=== PATIENT | male | born 1940 | race Caucasian/White ===

== ENCOUNTER 2016-04-20 15:02 | Emergency (ER) | payer MEDICARE, OTHER ==
[~2016-04-20] VITALS: Ht 157.5 cm; Wt 106.5 kg
[~2016-04-20 15:02] MED LIST: AMLO2.5T PO; ATOR40TA PO; CIPR250 PO; CLIN150 PO; HYDR-3533 PO; LANTUS2P SC; PROT40TA PO
[2016-04-20 15:04] VITALS: BP 164/91; PULSE 83; RESP 16; TEMP 97.7; O2SAT 98
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
[2016-04-20] MEDS ORDERED: BACT800T5 PO (15:56)
== END 2016-04-20 16:12 | disposition home or self-care (01) ==
LOC: NEPB 15:02
DX: I10 Essential (primary) hypertension (principal); L03.113 Cellulitis of right upper limb
CPT/HCPCS: 99283

== ENCOUNTER 2016-10-03 10:52 | Emergency (ER) | payer OTHER ==
[~2016-10-03] VITALS: Ht 167.6 cm; Wt 106.0 kg
[~2016-10-03 10:52] MED LIST changes: +BACT800T5 PO
[2016-10-03 10:53] VITALS: BP 152/90; PULSE 98; RESP 24; TEMP 97.6; O2SAT 97
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
[2016-10-03 11:30] VITALS: RESP 22; O2SAT 98
[2016-10-03] MEDS ORDERED: SODIUM CHLORIDE 0.9% FLUSH 10 ML FLUSH IV FLUSH PRN (11:30)
[2016-10-03] MEDS ORDERED: LISI10TA3 PO (11:30)
[2016-10-03] MEDS ORDERED: LANTINJ SQ (11:30)
[2016-10-03] MEDS ORDERED: AMLO5TAB2 PO (11:30)
[2016-10-03] MEDS ORDERED: NOVOLOGSS SQ (11:30)
[2016-10-03] MEDS ORDERED: ASPI81CH CHEW (11:30)
[2016-10-03] MEDS ORDERED: TAMS0.4C4 PO (11:30)
[2016-10-03] MEDS ORDERED: PANT40TA3 PO (11:30)
[2016-10-03 11:58] LABS: BASOPHIL % 0.4 % (0.0-2.0); EOSINOPHIL # 0.5 TH/MM3 (0-0.4); EOSINOPHIL % 5.8 % (0.0-4.0); HEMATOCRIT 46.5 % (39.0-51.0); HEMO FLAGS DIFF FINAL; LYMPH % 36.6 % (9.0-44.0); MEAN CELL VOLUME 92.2 FL (80.0-100.0); MEAN CORPUSCULAR HEMOGLOBIN 31.6 PG (27.0-34.0); MEAN CORPUSCULAR HGB CONC 34.3 % (32.0-36.0); MONO % 7.9 % (0.0-8.0); NEUT % 49.3 % (16.0-70.0); PLATELET COUNT 182 TH/MM3 (150-450); RED BLOOD COUNT 5.05 MIL/MM3 (4.50-5.90); RED CELL DISTRIBUTION WIDTH 14.1 % (11.6-17.2); WHITE BLOOD COUNT 8.2 TH/MM3 (4.0-11.0)
[2016-10-03 12:18] LABS: BICARBONATE 18.7 MEQ/L (21.0-32.0); POTASSIUM 4.7 MEQ/L (3.5-5.1)
[2016-10-03 13:32] LABS: BACTERIA, URINE RARE /hpf; BLOOD, URINE MOD (NEG); COMMENT (UR) CULT NOT INDICATED; CULTURE IF INDICATED CULT NOT INDICATED; GLUCOSE,URINE NEG (NEG); HYALINE CAST, URINE 1 /lpf (RARE); KETONE, URINE NEG (NEG); MUCUS URINE FEW /lpf (OCC); NITRITE,URINE NEG (NEG); PH, URINE 5.5 (5.0-8.5); URINE COLOR YELLOW (YELLW/STRAW)
[2016-10-03 15:15] VITALS: BP 129/72; PULSE 56; RESP 18; O2SAT 94
--- NOTE | 2016-10-03 15:15 | EKG ---
Date Performed: 10/03/2016 Time Performed: 11:17:02 PTAGE: 76 years EKG: Sinus rhythm WITH FIRST DEGREE AV BLOCK WITH OCCASIONAL SUPRAVENTRICULAR PREMATURE COMPLEXES BORDERLINE LEFT AXIS DEVIATION RIGHT BUNDLE BRANCH BLOCK ABNORMAL ECG PREVIOUS TRACING : 09/30/2015 00.18 Compared to prior tracing no significant change DOCTOR: Luz Marina [employer] Interpretating Date/Time 10/03/2016 15:15:21
== END 2016-10-03 15:33 | disposition home or self-care (01) ==
LOC: NEPE 10:52
DX: E11.649 Type 2 diabetes mellitus with hypoglycemia without coma (principal); I12.9 Hypertensive chronic kidney disease with stage 1 through stage 4 chronic kidney disease, or unspecified chronic kidney disease; N18.3 Chronic kidney disease, stage 3 (moderate); Z79.4 Long term (current) use of insulin
CPT/HCPCS: 80048; 81001; 85025; 93005; 99284

== ENCOUNTER 2016-12-11 21:04 | Inpatient (IN) | payer OTHER, MEDICARE ==
[~2016-12-11] VITALS: Ht 167.6 cm; Wt 107.5 kg
[~2016-12-11 21:04] MED LIST changes: -AMLO2.5T PO; +AMLO5TAB2 PO; +ASPI-516 CHEW; -ATOR40TA PO; -BACT800T5 PO; -CIPR250 PO; -CLIN150 PO; -HYDR-3533 PO; +LANTINJ SQ; -LANTUS2P SC; +LISI10TA3 PO; +NOVOLOGSS SQ; +PANT40TA3 PO; -PROT40TA PO; +TAMS0.4C4 PO
[2016-12-11 21:16] VITALS: RESP 16; TEMP 98.1
[2016-12-11] MEDS ORDERED: ATOR20TA15 PO (21:28)
[2016-12-11 21:29] VITALS: BP 146/74; PULSE 87; RESP 18; O2SAT 95
[2016-12-11] MEDS ORDERED: ONDANSETRON HCL 4 MG/2 ML VIAL IVP ONE (21:45)
[2016-12-11] MEDS ORDERED: MORPHINE SULFATE 4 MG/ML INJ IV PUSH ONE (21:45)
[2016-12-11] MEDS ORDERED: SODIUM CHLORIDE 0.9% FLUSH 10 ML FLUSH IV FLUSH PRN (21:45)
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
[2016-12-11 22:04] VITALS: O2SAT 95
[2016-12-11 22:23] LABS: BASOPHIL % 0.3 % (0.0-2.0); EOSINOPHIL # 0.5 TH/MM3 (0-0.4); HEMATOCRIT 44.6 % (39.0-51.0); HEMOGLOBIN 15.5 GM/DL (13.0-17.0); LYMPH % 34.9 % (9.0-44.0); LYMPHOCYTE # 3.4 TH/MM3 (1.0-4.8); MEAN CELL VOLUME 91.4 FL (80.0-100.0); MEAN CORPUSCULAR HEMOGLOBIN 31.8 PG (27.0-34.0); MEAN CORPUSCULAR HGB CONC 34.8 % (32.0-36.0); MEAN PLATELET VOLUME 8.9 FL (7.0-11.0); MONO % 7.8 % (0.0-8.0); MONOCYTE # 0.8 TH/MM3 (0-0.9); PLATELET COUNT 194 TH/MM3 (150-450); RED BLOOD COUNT 4.88 MIL/MM3 (4.50-5.90); RED CELL DISTRIBUTION WIDTH 13.6 % (11.6-17.2); WHITE BLOOD COUNT 9.6 TH/MM3 (4.0-11.0)
--- NOTE | 2016-12-11 22:45 | RADRPT ---
EXAM DATE/TIME: 12/11/2016 22:13 [facility] COMPARISON: No previous studies available for comparison. INDICATIONS : Right hip pain, fall. MEDICAL HISTORY : None. SURGICAL HISTORY : None. ENCOUNTER: Initial ACUITY: 1 day PAIN SCORE: 9/10 LOCATION: Right proximal hip FINDINGS: Examination of the right hip was performed with AP Pelvis. There is a intertrochanteric fracture on t he right. The hip joint is of normal width without significant sclerosis or bony hypertrophy. The a cetabulum is grossly intact. CONCLUSION: Intertrochanteric fracture the right hip Mathieu Walker MD on December 11, 2016 at 22:42 Board Certified Radiologist. This report was verified electronically.
[2016-12-11 22:46] LABS: ALKALINE PHOSPHATASE 72 U/L (45-117); TOTAL BILIRUBIN ADULT 0.4 MG/DL (0.2-1.0); TOTAL PROTEIN 7.2 GM/DL (6.4-8.2)
[2016-12-11 22:47] LABS: ALBUMIN 3.6 GM/DL (3.4-5.0); ALT (GPT) 29 U/L (12-78); AST (GOT) 33 U/L (15-37); BICARBONATE 24.1 MEQ/L (21.0-32.0); BLOOD UREA NITROGEN 28 MG/DL (7-18); CALCIUM 8.8 MG/DL (8.5-10.1); CHLORIDE 105 MEQ/L (98-107); CREATININE 2.23 MG/DL (0.60-1.30); GLOMERULAR FILTRATION RATE 29 ML/MIN (>89); GLUCOSE,RANDOM 130 MG/DL (74-106); SODIUM (NA) 140 MEQ/L (136-145)
--- NOTE | 2016-12-11 22:48 | RADRPT ---
EXAM DATE/TIME: 12/11/2016 22:32 [facility] COMPARISON: CHEST SINGLE AP, September 30, 2015, 0:25. INDICATIONS : Shortness of breath. MEDICAL HISTORY : None. SURGICAL HISTORY : None. ENCOUNTER: Initial ACUITY: 1 day PAIN SCORE: 0/10 LOCATION: Bilateral chest FINDINGS: A single view of the chest demonstrates the lungs to be symmetrically aerated without evidence of mas s, infiltrate or effusion. The cardiomediastinal contours are unremarkable. Osseous structures are intact. CONCLUSION: Normal examination. Mathieu Walker MD on December 11, 2016 at 22:46 Board Certified Radiologist. This report was verified electronically.
--- NOTE | 2016-12-11 22:49 | RADRPT ---
EXAM DATE/TIME: 12/11/2016 22:19 [facility] COMPARISON: No previous studies available for comparison. INDICATIONS : Right femur pain, fall. MEDICAL HISTORY : Right knee fracture SURGICAL HISTORY : None. ENCOUNTER: Initial ACUITY: 1 day PAIN SCORE: 10/10 LOCATION: Right proximal femur FINDINGS: Two view examination of the right femur demonstrates a intertrochanteric fracture the right hip. Ther e is severe arthritis of the knee. There is marked bony hypertrophy of the femoral condyles. There is deformity of the proximal tibia may be related to old hardware.. CONCLUSION: Intertrochanteric fracture right hip Mathieu Walker MD on December 11, 2016 at 22:47 Board Certified Radiologist. This report was verified electronically.
[2016-12-11 22:51] LABS: PROTHROMBIN TIME - PATIENT 10.7 SEC (9.8-11.6)
[2016-12-12] VITALS (7 sets, daily range): BP systolic 132–170; BP diastolic 65–79; PULSE 66–90; RESP 17–20; TEMP 95.7–97.9; O2SAT 93–95
[2016-12-12] MEDS ORDERED: ACETAMINOPHEN 325 MG TAB PO PRN (00:15)
[2016-12-12] MEDS ORDERED: NALOXONE HCL 0.4 MG/ML AMP IV PUSH PRN ×2 (00:15→11:45)
[2016-12-12] MEDS ORDERED: ONDANSETRON HCL 4 MG/2 ML VIAL IVP PRN (00:15)
[2016-12-12] MEDS ORDERED: SODIUM CHLORIDE 0.9% FLUSH 10 ML FLUSH IV FLUSH PRN (00:15)
--- NOTE | 2016-12-12 00:26 | RADRPT ---
EXAM DATE/TIME: 12/11/2016 23:50 [facility] COMPARISON: HIP RIGHT (AP&LAT 2/3VWS) W AP PELVIS, December 11, 2016, 22:13. INDICATIONS : Evaluate right hip fracture. RADIATION DOSE: 25.06 CTDIvol (mGy) MEDICAL HISTORY : None SURGICAL HISTORY : None. ENCOUNTER: Initial ACUITY: 1 day PAIN SCALE: 10/10 LOCATION: Right hip TECHNIQUE: Volumetric scanning of the hip was performed. Using automated exposure control and adjustment of the mA and/or kV according to patient size, radiation dose was kept as low as reasonably achievable to o btain optimal diagnostic quality images. DICOM format image data is available electronically for rev iew and comparison. FINDINGS: Intertrochanteric fracture of the proximal right femur is noted. Impaction with approximately 1 cm [place] overlap medially 8mm cortical gap anteriorly. Fracture is mildly comminuted. It involves the great er trochanter and lesser trochanter. Small osteophytes of the right hip. Mild superior/anterior joint narrowing. Mild posterior joint narr owing. Hip joint alignment within normal limits. Osteoarthritic findings of sacroiliac joints with br idging osteophytes on the left. Enlarged prostate measuring 5 cm in medial to lateral dimension. CONCLUSION: Mildly comminuted mildly impacted intertrochanteric fracture of the proximal right femur. Mitch Chaney MD on December 12, 2016 at 0:17 Board Certified Radiologist. This report was verified electronically.
[2016-12-12] MEDS ORDERED: LACTATED RINGER'S 1000 ML IV PRN (01:00)
[2016-12-12] MEDS ORDERED: INSULIN HUMAN REGULAR 1,000 UNITS/10 ML VIAL SQ PRN (01:00)
[2016-12-12] MEDS ORDERED: POVIDONE IODINE 5% (ANTISEPSIS KIT) 4 APPLICATIONS EACH NARE PRN (01:00)
[2016-12-12] MEDS ORDERED: CHLORHEXIDINE GLUCONATE 2 % 1 PACK (2 CLOTHS) TOPICAL PRN (01:00)
[2016-12-12] MEDS ORDERED: SODIUM CHLORID 0.9% 500 ML IV PRN (01:00)
[2016-12-12] MEDS: MORPHINE SULFATE 2 MG/ML INJ IV PUSH PRN ×2 (01:20→09:17)
[2016-12-12 07:24] LABS: AUTOMATED NEUTROPHIL # 11.8 TH/MM3 (1.8-7.7); BASOPHIL % 0.2 % (0.0-2.0); EOSINOPHIL % 0.1 % (0.0-4.0); HEMATOCRIT 43.7 % (39.0-51.0); HEMOGLOBIN 14.9 GM/DL (13.0-17.0); LYMPH % 14.9 % (9.0-44.0); LYMPHOCYTE # 2.2 TH/MM3 (1.0-4.8); MEAN CELL VOLUME 93.2 FL (80.0-100.0); MEAN CORPUSCULAR HEMOGLOBIN 31.6 PG (27.0-34.0); MEAN PLATELET VOLUME 9.1 FL (7.0-11.0); MONO % 6.7 % (0.0-8.0); NEUT % 78.1 % (16.0-70.0); PLATELET COUNT 183 TH/MM3 (150-450); RED CELL DISTRIBUTION WIDTH 14.2 % (11.6-17.2); WHITE BLOOD COUNT 15.1 TH/MM3 (4.0-11.0)
[2016-12-12 08:02] LABS: BICARBONATE 20.4 MEQ/L (21.0-32.0); CALCIUM 8.8 MG/DL (8.5-10.1); CREATININE 2.33 MG/DL (0.60-1.30)
[2016-12-12] MEDS ORDERED: SODIUM CHLORIDE 0.9% FLUSH 10 ML FLUSH IV FLUSH SCH (09:00)
[2016-12-12] MEDS ORDERED: VANCOMYCIN HCL 1000 MG VIAL ONE (10:00)
[2016-12-12] MEDS ORDERED: ceFAZolin INJ 1,000 MG VIAL ONE (10:00)
[2016-12-12] MEDS ORDERED: GENTAMICIN SULFATE 80 MG/2 ML VIAL ONE (10:01)
[2016-12-12] MEDS ORDERED: TRANEXAMIC ACID INJ 1,000 MG/10 ML AMP ONE (10:18)
[2016-12-12] MEDS ORDERED: SODIUM CHLORIDE 0.9% INJ 100 ML ONE (10:21)
[2016-12-12] MEDS ORDERED: ACETAMINOPHEN 1000 MG/100 ML 100 ML IV ONE (10:54)
--- NOTE | 2016-12-12 11:41 | PD.OP ---
cc: Tim Tabares MD Operative Report Right hip intertrochanteric fracture Postoperative Diagnosis: Same Procedure: Right hip treatment of intertrochanteric fracture with intramedullary nail Anesthesia: Gen. Surgeon: Tim Tabares Director Public Policy(s): VJ Marquis The surgical procedure was assisted by my Advanced Registered Nurse Practitioner. My SPORTS EQUIPMENT REPAIRER presence was necessary throughout this case for the manipulation and positioning of the surgical extremity. My SPORTS EQUIPMENT REPAIRER was assisting me throughout the duration of this procedure. The skill set of an Advance Registered Nurse Practitioner was medically necessary to complete this procedure. During the surgical case, the mechanical technician was working at the back table and the Advance Registered Nurse Practitioner was directly assisting me. Operation and Findings: Estimated blood loss: 100 cc Implants: Synthes short trochanteric nail, size: 11 x 130 The patient received intravenous vancomycin and Ancef. After the appropriate anesthesia was administered, and the patient was transferred to the fracture table. The fracture was anatomically reduced under fluoroscopic imaging. The hip was prepped and draped in usual sterile fashion. We made incision just proximal to the tip of the greater trochanter. We dissected down through the deep fascia. We used a threaded guidewire at the tip of the greater trochanter which was placed down to the metaphyseal region on both the AP and lateral views. We reamed proximally. Using fluoroscopic analysis we templated the appropriate size for the short nail. This nail was then placed into position under fluoroscopic guidance. We made incision laterally based on the position of the associated jig. We then placed a threaded guidewire into the center, center of the femoral head. The appropriate length for the helical blade was measured. We drilled laterally and then step reamed the femoral neck and femoral head region. The helical blade was placed into position. We then tightened the proximal set screw, which was followed by releasing one turn off of the screw to allow for compression. Traction was released from the leg and then manual compression was performed. The nail was secured distally with a single screw off of the jig using fluoroscopic guidance. We took final fluoroscopic imaging which revealed that the fracture was in very good position. The hardware was in good position as well. The wounds were thoroughly irrigated and then closed with a 0 Vicryl followed by 2-0 Vicryl and kadie. The postoperative plan is to start full weightbearing. Additionally, we will initiate postoperative antibiotics for 24 hours along with DVT prophylaxis consisting of early mobilization, SCDs, compression stockings, and Lovenox for 3 weeks (I discussed the dosage of the Lovenox with the pharmacist given his obesity and also the chronic renal insufficiency. The pharmacist felt that 40 mg subcutaneous daily would be appropriate in this patient.) Tim Tabares MD Dec 12, 2016 11:41
--- NOTE | 2016-12-12 11:41 | PD.OP ---
cc: Tim Tabares MD Operative Report Right hip intertrochanteric fracture Postoperative Diagnosis: Same Procedure: Right hip treatment of intertrochanteric fracture with intramedullary nail Anesthesia: Gen. Surgeon: Tim Tabares Personal Clothing Laundry Aide(s): VJ Marquis The surgical procedure was assisted by my Advanced Registered Nurse Practitioner. My C PYTHON DEVELOPER presence was necessary throughout this case for the manipulation and positioning of the surgical extremity. My C PYTHON DEVELOPER was assisting me throughout the duration of this procedure. The skill set of an Advance Registered Nurse Practitioner was medically necessary to complete this procedure. During the surgical case, the surgical nurse practitioner was working at the back table and the Advance Registered Nurse Practitioner was directly assisting me. Operation and Findings: Estimated blood loss: 100 cc Implants: Synthes short trochanteric nail, size: 11 x 130 The patient received intravenous vancomycin and Ancef. After the appropriate anesthesia was administered, and the patient was transferred to the fracture table. The fracture was anatomically reduced under fluoroscopic imaging. The hip was prepped and draped in usual sterile fashion. We made incision just proximal to the tip of the greater trochanter. We dissected down through the deep fascia. We used a threaded guidewire at the tip of the greater trochanter which was placed down to the metaphyseal region on both the AP and lateral views. We reamed proximally. Using fluoroscopic analysis we templated the appropriate size for the short nail. This nail was then placed into position under fluoroscopic guidance. We made incision laterally based on the position of the associated jig. We then placed a threaded guidewire into the center, center of the femoral head. The appropriate length for the helical blade was measured. We drilled laterally and then step reamed the femoral neck and femoral head region. The helical blade was placed into position. We then tightened the proximal set screw, which was followed by releasing one turn off of the screw to allow for compression. Traction was released from the leg and then manual compression was performed. The nail was secured distally with a single screw off of the jig using fluoroscopic guidance. We took final fluoroscopic imaging which revealed that the fracture was in very good position. The hardware was in good position as well. The wounds were thoroughly irrigated and then closed with a 0 Vicryl followed by 2-0 Vicryl and kadie. The postoperative plan is to start full weightbearing. Additionally, we will initiate postoperative antibiotics for 24 hours along with DVT prophylaxis consisting of early mobilization, SCDs, compression stockings, and Lovenox for 3 weeks (I discussed the dosage of the Lovenox with the pharmacist given his obesity and also the chronic renal insufficiency. The pharmacist felt that 40 mg subcutaneous daily would be appropriate in this patient.) Tim Tabares MD Dec 12, 2016 11:41
--- NOTE | 2016-12-12 11:41 | PD.OP ---
cc: Tim Tabares MD Operative Report Right hip intertrochanteric fracture Postoperative Diagnosis: Same Procedure: Right hip treatment of intertrochanteric fracture with intramedullary nail Anesthesia: Gen. Surgeon: Tim Tabares Beverage Manager(s): VJ Marquis The surgical procedure was assisted by my Advanced Registered Nurse Practitioner. My BROADCAST TRAFFIC COORDINATOR presence was necessary throughout this case for the manipulation and positioning of the surgical extremity. My BROADCAST TRAFFIC COORDINATOR was assisting me throughout the duration of this procedure. The skill set of an Advance Registered Nurse Practitioner was medically necessary to complete this procedure. During the surgical case, the surgical assistant certified was working at the back table and the Advance Registered Nurse Practitioner was directly assisting me. Operation and Findings: Estimated blood loss: 100 cc Implants: Synthes short trochanteric nail, size: 11 x 130 The patient received intravenous vancomycin and Ancef. After the appropriate anesthesia was administered, and the patient was transferred to the fracture table. The fracture was anatomically reduced under fluoroscopic imaging. The hip was prepped and draped in usual sterile fashion. We made incision just proximal to the tip of the greater trochanter. We dissected down through the deep fascia. We used a threaded guidewire at the tip of the greater trochanter which was placed down to the metaphyseal region on both the AP and lateral views. We reamed proximally. Using fluoroscopic analysis we templated the appropriate size for the short nail. This nail was then placed into position under fluoroscopic guidance. We made incision laterally based on the position of the associated jig. We then placed a threaded guidewire into the center, center of the femoral head. The appropriate length for the helical blade was measured. We drilled laterally and then step reamed the femoral neck and femoral head region. The helical blade was placed into position. We then tightened the proximal set screw, which was followed by releasing one turn off of the screw to allow for compression. Traction was released from the leg and then manual compression was performed. The nail was secured distally with a single screw off of the jig using fluoroscopic guidance. We took final fluoroscopic imaging which revealed that the fracture was in very good position. The hardware was in good position as well. The wounds were thoroughly irrigated and then closed with a 0 Vicryl followed by 2-0 Vicryl and kadie. The postoperative plan is to start full weightbearing. Additionally, we will initiate postoperative antibiotics for 24 hours along with DVT prophylaxis consisting of early mobilization, SCDs, compression stockings, and Lovenox for 3 weeks (I discussed the dosage of the Lovenox with the pharmacist given his obesity and also the chronic renal insufficiency. The pharmacist felt that 40 mg subcutaneous daily would be appropriate in this patient.) Tim Tabares MD Dec 12, 2016 11:41
[2016-12-12] MEDS ORDERED: ENOX40IN SQ (11:42)
[2016-12-12] MEDS ORDERED: NORC5TAB PO (11:42)
[2016-12-12] MEDS ORDERED: SODIUM CHLORIDE 0.9% FLUSH 5 ML FLUSH IVF PRN (11:45)
[2016-12-12] MEDS ORDERED: BISACODYL 10 MG SUPP RECTAL PRN (11:45)
[2016-12-12] MEDS ORDERED: Post-op Orders (for Pharmacy) MISC XX ONE (11:45)
[2016-12-12] MEDS ORDERED: ZOLPIDEM TARTRATE 5 MG TAB PO PRN (11:45)
[2016-12-12] MEDS ORDERED: MORPHINE SULFATE 4 MG/ML INJ IV PUSH PRN (11:45)
[2016-12-12] MEDS ORDERED: diphenhydrAMINE HCL 50 MG/ML VIAL IV PUSH PRN (11:45)
[2016-12-12] MEDS ORDERED: ALUMINUM/MAGNESIUM/SIMETH 30 ML CUP PO PRN (11:45)
--- NOTE | 2016-12-12 11:52 | RADRPT ---
EXAM DATE/TIME: 12/12/2016 11:00 [facility] COMPARISON: No previous studies available for comparison. INDICATIONS : Open reduction internal fixation of right hip fracture MEDICAL HISTORY : None. SURGICAL HISTORY : None. ENCOUNTER: Initial ACUITY: 1 day PAIN SCORE: Non-responsive. LOCATION: Right hip FINDINGS: Fluoroscopic images are of the right hip are submitted. There has been interval intramedullary giuliano an d compression screw fixation of the right femoral intertrochanteric fracture. Hardware appears well-p ositioned. There is anatomic alignment. No new acute bony fractures are noted. CONCLUSION: 1. Status post right hip ORIF, as above. London Chin MD on December 12, 2016 at 11:48 Board Certified Radiologist. This report was verified electronically.
[2016-12-12] MEDS ORDERED: *MEPERIDINE 25 MG INJ VIAL PERIprocedural Use ONLY ONE (12:05)
[2016-12-12] MEDS ORDERED: *LABETALOL HCL 100 MG/20 ML VIAL PERIprocedural Use ONLY ONE (12:09)
--- NOTE | 2016-12-12 12:14 | MB ---
cc: ZAYRA BASS M.D. DATE OF CONSULTATION 12/12/2016 REASON FOR CONSULTATION Right hip fracture. HISTORY The patient is a 76-year-old man. This patient had a mechanical fall on a park bench yesterday. The patient tripped, injured the right hip. He was unable to ambulate. The patient was brought to [facility]. X-rays were taken. He had fracture of the right hip. We discussed diagnosis and reviewed the x-rays with the emergency room physician. We did recommend getting a CT scan to further characterize the nature of the fracture. This was completed. The patient has had previous history of problems with the knee in the past where he has had surgery and then hardware removed and he has had a history of infection in this area. The patient states that says he has significant amount of pain around the hip and thigh region. There is no new numbness or tingling radiating down the leg. PAST MEDICAL HISTORY Positive for having one kidney and he has had chronic kidney disease now for the last 4 or 5 years. Other medical conditions include hypertension, high cholesterol, diabetes, heart rhythm problems. PAST SURGICAL HISTORY Appendectomy, kidneys stones, tonsillectomy, surgery about the right knee. SOCIAL HISTORY The patient currently drink alcohol. Does not smoke. ALLERGIES NO KNOWN DRUG ALLERGIES. MEDICATIONS See the chart note that he does take insulin, several preparations of this. REVIEW OF SYSTEMS The 12-point review of systems is negative except for what is stated in the history of present illness. PHYSICAL EXAMINATION VITAL SIGNS: Temperature is 97.9, pulse is 75, respirations 18, blood pressure 135/77. GENERAL: Patient is awake, alert and oriented x3. Normal affect insight and judgment. Mild distress due to pain. He is obese. HEENT: Atraumatic. Extraocular muscles are intact. Oropharynx is moist. NECK: Neck is supple, nontender. HEART: Regular rate and rhythm. LUNGS: Clear to auscultation bilaterally. ABDOMEN: Soft, nontender, nondistended with obesity. BACK: Shows no CVA tenderness. EXTREMITIES: Bilateral upper extremities, the shoulders, elbows and wrist have good active range of motion. The right hip has swelling of a mild to moderate degree. I did not appreciate a wound anteriorly about the thigh. The hip ___ externally rotated. He moves the toes actively on the right foot. He has brisk capillary refill about the toes. The left knee and ankle have no tenderness or swelling. IMAGING STUDIES Images reviewed including the reports of the right femur, AP pelvis and a CT of the right hip shows the patient has comminuted mildly displaced intertrochanteric fracture. This revealed the postsurgical changes about the knee with what looks like previous hardware removal possibly from a high tibial osteotomy with severe osteoarthritis of the knee. LABORATORY DATA Laboratory shows sodium 140, creatinine 2.23 which is stable. BUN is 28, glucose went from 307 to 130. Coagulations 1.0, hematocrit 43.7, platelets 183. IMPRESSION 1. Right hip intertrochanteric fracture. 2. Insulin-dependent diabetic. 3. History of right knee infection in the past with severe osteoarthritis. 4. Chronic renal failure with a single kidney. DECISION-MAKING I discussed the diagnosis in detail with the patient. We discussed operative and nonoperative management. I do feel that with nonoperative management there is significant risk for displacement of this fracture. This type of fracture pattern potentially can be unstable and if this does not heal then this can seriously affect his ability to ambulate which can lead to serious impairment of the lower extremity which can lead to blood clots, bed sores, pneumonia, DVT, pulmonary embolus and . Based on this fracture pattern I have recommended surgical management. There are risks, however, especially given the fact that he has the chronic kidney disease is at risk for worsening in addition to the use of perioperative antibiotics can affect the kidneys. Additionally, the patient will require DVT prophylaxis chemically which can be affected by the kidney disease as well. We talked about postoperative rehabilitation in detail. The patient understands the risks of surgery include but not limited to injury to nerves, blood vessels, bleeding, infection failure of hardware, need for reoperation, continued pain, loss of range of motion of the hip, weakness, DVT, pulmonary embolus, pneumonia and . The patient wishes to move forward with surgical management. MD GLADYS Yung/SHAGGY /8:21 AM /11:58 AM NICOLÁS
[2016-12-12] MEDS ORDERED: *morphine SULFATE 8 MG/ML PERIprocedure ONLY ONE (12:24)
[2016-12-12] MEDS ORDERED: TRANEXAMIC ACID IV SCH ×2 (13:00→15:00)
[2016-12-12] MEDS ORDERED: DO NOT ADM ANY ANTICOAGULANT DRUGS PRN (13:00)
[2016-12-12] MEDS ORDERED: SODIUM CHLORIDE 0.9% IV SCH ×2 (13:00→15:00)
--- NOTE | 2016-12-12 13:28 | HHI.HP ---
HPI Service [facility] Analilia Pascual MD Admission Diagnosis closed right hip fracture Diagnoses: Chief Complaint: Status post Fall Travel History International Travel<30 Days: No Contact w/Intl Traveler <30 Da: No Traveled to Known Affected Are: No History of Present Illness This is a pleasant 76 y/o male with History of right knee arthroplasty, brought in by EMS due to status post fall with secondary right hip pain he had a mechanical trip and fall on a park bench, the patient has CAD, Hyperlipidemia, DM II, Left shoulder OA, BPH, CKD IV, he was found with Right hip Intertrochanteric Fracture status post intramedullary nail by Doctor Tim Tabares. complaint of pain on his Right hip. Review of Systems Constitutional: DENIES: Fever, Chills, Change in appetite Endocrine: DENIES: Heat/cold intolerance Eyes: DENIES: Blurred vision, Eye pain Musculoskeletal: COMPLAINS OF: Joint pain Except as stated in HPI: all other systems reviewed are Neg Past Family Social History Past Medical History CAD Hyperlipidemia DM II Left shoulder OA and torn rotator cuff BPH CKD IV Past Surgical History Appendectomy 2004 Tonsillectomy Hernia repair Reported Medications Reported Meds & Active Scripts Active Enoxaparin Inj (Enoxaparin Sodium) 40 Mg/0.4 Ml Syr 40 Mg SQ DAILY [place] (Hydrocodone-Acetaminophen) 5-325 mg Tab 1-2 Tab PO Q4H PRN Reported Atorvastatin (Atorvastatin Calcium) 20 Mg Tab 20 Mg PO HS Lantus Solostar Pen Inj (Insulin Glargine) 300 Unit/3 Ml Pen 35 Units SQ BID Pantoprazole (Pantoprazole Sodium) 40 Mg Tab 40 Mg PO DAILY Lisinopril 10 Mg Tab 10 Mg PO DAILY Tamsulosin (Tamsulosin HCl) 0.4 Mg Cap 0.4 Mg PO HS Novolog Inj (Insulin Aspart) 100 Unit/Ml Inj 12 Units SQ TID Allergies: Coded Allergies: No Known Allergies (Verified Allergy, Unknown, 12/12/16) Active Ordered Medications Current Medications Medications (Trade) Dose Ordered Sig/Porsha Route Start Time Stop Time Status Last Admin (Tylenol) 650 mg Q4H PRN PO 12/12/16 00:15 Lactated Ringer's 1,000 ml @ 30 mls/hr Q24H PRN IV 12/12/16 01:00 12/15/16 00:59 12/12/16 09:19 Sodium Chloride 500 ml @ 30 mls/hr [id number] PRN IV 12/12/16 01:00 12/15/16 00:59 (Betadine 5% Antisepsis Kit) 1 applic PUBLIC WELFARE WORKER PRN EACH NARE 12/12/16 01:00 12/15/16 00:59 (Chlorhexidine 2% Cloth) 3 pack PUBLIC WELFARE WORKER PRN TOPICAL 12/12/16 01:00 12/15/16 00:59 (NovoLIN R INJ) See Protocol Table ... PUBLIC WELFARE WORKER PRN SQ 12/12/16 01:00 12/15/16 00:59 Sodium Chloride 1,000 ml @ 100 mls/hr Q10H IV 12/12/16 11:36 (NS Flush) 2 ml UNSCH PRN IVF 12/12/16 11:45 (NS Flush) 2 ml BID IVF 12/12/16 21:00 Cefazolin Sodium 1000 mg/Sodium Chloride 100 ml @ 200 mls/hr Q6H IV 12/12/16 16:00 12/13/16 04:29 (Lovenox Inj) 40 mg Q24H SQ 12/13/16 11:00 12/22/16 11:01 ([place] 5-325 Mg) 1 tab Q4H PRN PO 12/12/16 11:45 ([place] 5-325 Mg) 2 tab Q4H PRN PO 12/12/16 11:45 (Theragran M Tab) 1 tab BID PO 12/13/16 21:00 02/11/17 20:59 (Zofran Inj) 4 mg Q6H PRN IVP 12/12/16 11:45 (Colace) 100 mg BID PO 12/13/16 21:00 (Mag-Al Plus Susp Liq) 30 ml Q6H PRN PO 12/12/16 11:45 (Ambien) 5 mg HS PRN PO 12/12/16 11:45 (Dulcolax Supp) 10 mg DAILY PRN RECTAL 12/12/16 11:45 (Milk Of Magnesia Liq) 30 ml DAILY PRN PO 12/12/16 11:45 (Narcan Inj) 0.4 mg UNSCH PRN IV PUSH 12/12/16 11:45 (Benadryl Inj) 25 mg Q6H PRN IV PUSH 12/12/16 11:45 (Morphine Inj) 2 mg Q3H PRN IV PUSH 12/12/16 11:45 Tranexamic Acid 1010 mg/Sodium Chloride 110.1 ml @ 200 mls/hr UNSCH IV 12/12/16 13:00 12/12/16 19:00 12/12/16 13:02 Miscellaneous Information ALL NURSING DEPARTME... UNSCH PRN .XX 12/12/16 13:00 12/13/16 12:59 Family History Mother with breast Cancer Social History Lives alone, denies any toxic habits Physical Exam Vital Signs Vital Signs Date Time Temp Pulse Resp B/P (MAP) Pulse Ox O2 Delivery O2 Flow Rate FiO2 12/12/16 13:00 69 18 128/67 (87) 96 Nasal Cannula 3 12/12/16 12:45 68 18 124/65 (84) 96 Nasal Cannula 3 12/12/16 12:30 66 18 131/61 (84) 96 Nasal Cannula 3 12/12/16 12:15 73 18 142/68 (92) 99 Nasal Cannula 3 12/12/16 12:10 98 18 205/88 (127) 99 Nasal Cannula 3 12/12/16 12:04 98.4 100 18 193/83 (119) 100 Nasal Cannula 3 12/12/16 08:00 96.0 66 17 137/65 (89) 94 12/12/16 04:15 97.9 75 18 135/77 (96) 95 12/12/16 01:56 74 12/12/16 01:00 97.6 72 18 170/78 (108) 95 12/11/16 22:04 95 Room Air 12/11/16 21:29 87 18 146/74 (98) 95 Room Air 12/11/16 21:25 18 95 Room Air 12/11/16 21:16 98.1 16 Physical Exam GENERAL: Obese patient, no acute distress. SKIN: Focused skin assessment warm/dry. No lacerations, abrasions, or ecchymosis. HEAD: Atraumatic. Normocephalic. EYES: Pupils equal and round. No scleral icterus. No injection or drainage. ENT: Mucous membranes pink and moist. NECK: Trachea midline. No JVD. CARDIOVASCULAR: Regular rate and rhythm. Bilateral dorsalis pedis pulses are brisk and equal. RESPIRATORY: No accessory muscle use. Clear to auscultation. Breath sounds equal bilaterally. GASTROINTESTINAL: Abdomen soft, non-tender, nondistended. MUSCULOSKELETAL: Right hip with clean surgical wound. NEUROLOGICAL: Awake and alert. No obvious cranial nerve deficits. Motor grossly within normal limits. Normal speech. PSYCHIATRIC: Appropriate mood and affect; insight and judgment normal. Laboratory Laboratory Tests Test 12/11/16 22:00 12/12/16 05:46 White Blood Count 9.6 15.1 Red Blood Count 4.88 4.70 Hemoglobin 15.5 14.9 Hematocrit 44.6 43.7 Mean Corpuscular Volume 91.4 93.2 Mean Corpuscular Hemoglobin 31.8 31.6 Mean Corpuscular Hemoglobin Concent 34.8 34.0 Red Cell Distribution Width 13.6 14.2 Platelet Count 194 183 Mean Platelet Volume 8.9 9.1 Neutrophils (%) (Auto) 52.0 78.1 Lymphocytes (%) (Auto) 34.9 14.9 Monocytes (%) (Auto) 7.8 6.7 Eosinophils (%) (Auto) 5.0 0.1 Basophils (%) (Auto) 0.3 0.2 Neutrophils # (Auto) 5.0 11.8 Lymphocytes # (Auto) 3.4 2.2 Monocytes # (Auto) 0.8 1.0 Eosinophils # (Auto) 0.5 0.0 Basophils # (Auto) 0.0 0.0 CBC Comment DIFF FINAL DIFF FINAL Differential Comment Prothrombin Time 10.7 Prothromb Time International Ratio 1.0 Activated Partial Thromboplast Time 25.2 Blood Urea Nitrogen 28 28 Creatinine 2.23 2.33 Random Glucose 130 307 Total Protein 7.2 Albumin 3.6 Calcium Level 8.8 8.8 Alkaline Phosphatase 72 Aspartate Amino Transf (AST/SGOT) 33 Alanine Aminotransferase (ALT/SGPT) 29 Total Bilirubin 0.4 Sodium Level 140 134 Potassium Level 4.2 5.4 Chloride Level 105 105 Carbon Dioxide Level 24.1 20.4 Anion Gap 11 9 Estimat Glomerular Filtration Rate 29 27 Result Diagram: 12/12/1646 12/12/1646 Imaging Last Impressions Hip X-Ray 12/12/16 Signed Impressions: Service Date/Time: Monday, December 12, 2016 11:00 - CONCLUSION: 1. Status post right hip ORIF, as above. London Chin MD Lower Extremity CT 12/11/16 Signed Impressions: Service Date/Time: Sunday, December 11, 2016 23:50 - CONCLUSION: Mildly comminuted mildly impacted intertrochanteric fracture of the proximal right femur. Mitch Chaney MD Hip and Pelvis X-Ray 12/11/16 Signed Impressions: Service Date/Time: Sunday, December 11, 2016 22:13 - CONCLUSION: Intertrochanteric fracture the right hip Mathieu Walker MD Femur X-Ray 12/11/16 Signed Impressions: Service Date/Time: Sunday, December 11, 2016 22:19 - CONCLUSION: Intertrochanteric fracture right hip Mathieu Walker MD Chest X-Ray 12/11/16 Signed Impressions: Service Date/Time: Sunday, December 11, 2016 22:32 - CONCLUSION: Normal examination. Mathieu Walker MD [place] VTE Risk Assessment Caprini VTE Risk Assessment: Mod/High Risk (score >= 2) Caprini Risk Assessment Model Point Value = 1 Point Value = 2 Point Value = 3 Point Value = 5 Age 41-60 Minor surgery BMI > 25 kg/m2 Swollen legs Varicose veins or History of unexplained or recurrent spontaneous Oral contraceptives or hormone replacement Sepsis (< 1 month) Serious lung disease, including pneumonia (< 1 month) Abnormal pulmonary function Acute myocardial infarction Congestive heart failure (< 1 month) History of inflammatory bowel disease Medical patient at bed rest Age 61-74 Arthroscopic surgery Major open surgery (> 45 min) Laparoscopic surgery (> 45 min) Malignancy Confined to bed (> 72 hours) Immobilizing plaster cast Central venous access Age >= 75 History of VTE Family history of VTE Factor V Leiden Prothrombin [id number] Lupus anticoagulant Anticardiolipin antibodies Elevated serum homocysteine Heparin-induced thrombocytopenia Other congenital or acquired thrombophilia Stroke (< 1 month) Elective arthroplasty Hip, pelvis, or leg fracture Acute spinal cord injury (< 1 month) Prophylaxis Regimen Total Risk Factor Score Risk Level Prophylaxis Regimen 0-1 Low Early ambulation 2 Moderate Order ONE of the following: *Sequential Compression Device (SCD) *Heparin 5000 units SQ BID 3-4 Higher Order ONE of the following medications: *Heparin 5000 units SQ TID *Enoxaparin/Lovenox 40 mg SQ daily (WT < 150 kg, CrCl > 30 mL/min) *Enoxaparin/Lovenox 30 mg SQ daily (WT < 150 kg, CrCl > 10-29 mL/min) *Enoxaparin/Lovenox 30 mg SQ BID (WT < 150 kg, CrCl > 30 mL/min) AND/OR *Sequential Compression Device (SCD) 5 or more Highest Order ONE of the following medications: *Heparin 5000 units SQ TID (Preferred with Epidurals) *Enoxaparin/Lovenox 40 mg SQ daily (WT < 150 kg, CrCl > 30 mL/min) *Enoxaparin/Lovenox 30 mg SQ daily (WT < 150 kg, CrCl > 10-29 mL/min) *Enoxaparin/Lovenox 30 mg SQ BID (WT < 150 kg, CrCl > 30 mL/min) AND *Sequential Compression Device (SCD) Assessment and Plan Assessment and Plan 1. Status post fall with secondary Right hip Intertrochanteric Fracture status post intramedullary nail by Doctor Tim Tabares continue pain medicine, consult Diesel Tractor Operator and PT. 2. CAD stable continue Home medicines. 3. Hyperlipidemia continue statins 4. BPH continue Flomax 5. DM II stable continue ADA diet and heart healthy diet, sliding stable, Long lasting insulin, and scheduled insulin with every meal 6. CKD IV stable 7. Obesity strongly recommended diet and exercise as outpatient DVT prophylaxis with Lovenox. Code Status Full Code. Discussed Condition With Patient. Physician Certification 2 Midnight Certification Type: Admission for Inpatient Services Order for Inpatient Services The services are ordered in accordance with Medicare regulations or non- Medicare payer requirements, as applicable. In the case of services not specified as inpatient-only, they are appropriately provided as inpatient services in accordance with the 2-midnight benchmark. Estimated LOS (days): 3 days is the estimated time the patient will need to remain in the hospital, assuming treatment plan goals are met and no additional complications. Post-Hospital Plan: Not yet determined Roberto Carlos Kaiser MD Dec 12, 2016 1:28 pm
[2016-12-12] MEDS: PANTOPRAZOLE SOD 40 MG DELAYED RELEASE TAB PO SCH (17:04)
[2016-12-12] MEDS: ACETAMINOPHEN/HYDROcodone 325 MG/5 MG TAB PO PRN (18:42)
[2016-12-12] MEDS: SODIUM CHLOR 0.9% 1000 ML INJ 1,000 ML IV SCH ×2 (18:45→22:55)
[2016-12-12] MEDS: ATORVASTATIN 20 MG TAB PO SCH (20:22)
[2016-12-12] MEDS: SODIUM CHLORIDE 0.9% FLUSH 5 ML FLUSH IVF SCH (20:30)
[2016-12-12] MEDS: TAMSULOSIN HCL 0.4 MG CAP PO SCH (20:30)
[2016-12-12] MEDS: ONDANSETRON HCL 4 MG/2 ML VIAL IVP PRN (20:31)
[2016-12-12] MEDS: INSULIN DETEMIR 100 UNITS/ML VIAL SQ SCH (20:37)
[2016-12-12] MEDS: INSULIN ASPART SUPPLEMENTAL SCALE SQ SCH (20:37)
[2016-12-13] VITALS (7 sets, daily range): BP systolic 130–150; BP diastolic 62–71; PULSE 70–89; RESP 15–20; TEMP 96.2–98.6; O2SAT 90–94
[2016-12-13] MEDS: ONDANSETRON HCL 4 MG/2 ML VIAL IVP PRN (05:24)
[2016-12-13 07:07] LABS: HEMATOCRIT 41.5 % (39.0-51.0); HEMOGLOBIN 14.1 GM/DL (13.0-17.0); MEAN CELL VOLUME 93.1 FL (80.0-100.0); MEAN CORPUSCULAR HEMOGLOBIN 31.7 PG (27.0-34.0); MEAN PLATELET VOLUME 9.3 FL (7.0-11.0); PLATELET COUNT 147 TH/MM3 (150-450); RED BLOOD COUNT 4.45 MIL/MM3 (4.50-5.90); RED CELL DISTRIBUTION WIDTH 14.2 % (11.6-17.2); WHITE BLOOD COUNT 13.1 TH/MM3 (4.0-11.0)
[2016-12-13 07:24] LABS: BICARBONATE 23.3 MEQ/L (21.0-32.0); CALCIUM 8.2 MG/DL (8.5-10.1); CREATININE 2.05 MG/DL (0.60-1.30)
[2016-12-13] MEDS: PANTOPRAZOLE SOD 40 MG DELAYED RELEASE TAB PO SCH (08:47)
[2016-12-13] MEDS: INSULIN DETEMIR 100 UNITS/ML VIAL SQ SCH ×2 (08:47→20:16)
[2016-12-13] MEDS: LISINOPRIL 10 MG TAB PO SCH (08:47)
[2016-12-13] MEDS: INSULIN ASPART SUPPLEMENTAL SCALE SQ SCH ×4 (08:48→20:16)
[2016-12-13] MEDS: INSULIN HUMAN REGULAR 1,000 UNITS/10 ML VIAL SQ SCH ×3 (08:51→18:20)
[2016-12-13] MEDS: SODIUM CHLOR 0.9% 1000 ML INJ 1,000 ML IV SCH (08:51)
[2016-12-13] MEDS: SODIUM CHLORIDE 0.9% FLUSH 5 ML FLUSH IVF SCH ×2 (08:53→20:17)
--- NOTE | 2016-12-13 08:59 | EKG ---
Date Performed: 12/12/2016 Time Performed: 06:37:50 PTAGE: 76 years EKG: Sinus rhythm with borderline 1st degree A-V block. Right bundle branch block Lateral T wave changes are nonspecif ic Compared to prior tracing no significant change Abnormal ECG PREVIOUS TRACING : 10/03/2016 11.17 DOCTOR: Jaime Corral Interpretating Date/Time 12/13/2016 08:59:07
[2016-12-13] MEDS: ACETAMINOPHEN/HYDROcodone 325 MG/5 MG TAB PO PRN ×3 (11:38→20:16)
[2016-12-13] MEDS: ENOXAPARIN SODIUM 30 MG/0.3 ML SYRINGE SQ SCH (11:40)
--- NOTE | 2016-12-13 14:23 | HHI.PR ---
Subjective Remarks This is a pleasant 76 y/o male with History of right knee arthroplasty, brought in by EMS due to status post fall with secondary right hip pain he had a mechanical trip and fall on a park bench, the patient has CAD, Hyperlipidemia, DM II, Left shoulder OA, BPH, CKD IV, he was found with Right hip Intertrochanteric Fracture status post intramedullary nail by Doctor Tim Tabares, no complaint today, seen and discussed with nurse Miss Majano, no nausea, vomit or diarrhea. Objective Vital Signs Date Time Temp Pulse Resp B/P (MAP) Pulse Ox O2 Delivery O2 Flow Rate FiO2 12/13/16 12:00 98.0 89 15 135/71 (92) 93 12/13/16 08:00 97.5 84 15 141/64 (89) 92 12/13/16 04:00 97.0 86 20 150/68 (95) 92 12/13/16 00:00 98.6 83 20 137/69 (91) 92 12/12/16 21:10 Nasal Cannula 2.00 12/12/16 20:00 97.5 90 20 141/79 (99) 95 12/12/16 16:00 97.9 78 17 142/67 (92) 93 I/O 12/12/16 12/12/16 12/12/16 12/13/16 12/13/16 12/13/16 07:00 15:00 23:00 07:00 15:00 23:00 Intake Total 0 ml 610.1 ml 320 ml Output Total 325 ml 75 ml 600 ml Balance -325 ml 535.1 ml -280 ml Intake Oral 0 ml 120 ml IV Total 110.1 ml 200 ml Other 500 ml Output Urine Total 325 ml 600 ml Estimated Blood Loss 75 ml # Voids 3 # Bowel Movements 0 0 Result Diagram: 12/13/16 0510 12/13/16 0510 Imaging Last Impressions Hip X-Ray 12/12/16 0000 Signed Impressions: Service Date/Time: Monday, December 12, 2016 11:00 - CONCLUSION: 1. Status post right hip ORIF, as above. London Chin MD Lower Extremity CT 12/11/16 0000 Signed Impressions: Service Date/Time: Sunday, December 11, 2016 23:50 - CONCLUSION: Mildly comminuted mildly impacted intertrochanteric fracture of the proximal right femur. Mitch Chaney MD Hip and Pelvis X-Ray 12/11/16 0000 Signed Impressions: Service Date/Time: Sunday, December 11, 2016 22:13 - CONCLUSION: Intertrochanteric fracture the right hip Mathieu Walker MD Femur X-Ray 12/11/16 0000 Signed Impressions: Service Date/Time: Sunday, December 11, 2016 22:19 - CONCLUSION: Intertrochanteric fracture right hip Mathieu Walker MD Chest X-Ray 12/11/16 0000 Signed Impressions: Service Date/Time: Sunday, December 11, 2016 22:32 - CONCLUSION: Normal examination. Mathieu Walker MD Procedures Right hip Intertrochanteric Fracture status post intramedullary nail by Doctor Tim Tabares Other Results Laboratory Tests Test 12/11/16 22:00 12/12/16 05:46 12/13/16 05:10 Prothrombin Time 10.7 SEC Prothromb Time International Ratio 1.0 RATIO Activated Partial Thromboplast Time 25.2 SEC Blood Urea Nitrogen 28 MG/DL 28 MG/DL Creatinine 2.23 MG/DL 2.05 MG/DL Random Glucose 130 MG/DL 228 MG/DL Total Protein 7.2 GM/DL Albumin 3.6 GM/DL Calcium Level 8.8 MG/DL 8.2 MG/DL Alkaline Phosphatase 72 U/L Aspartate Amino Transf (AST/SGOT) 33 U/L Alanine Aminotransferase (ALT/SGPT) 29 U/L Total Bilirubin 0.4 MG/DL Sodium Level 140 MEQ/L 137 MEQ/L Potassium Level 4.2 MEQ/L 4.6 MEQ/L Chloride Level 105 MEQ/L 105 MEQ/L Carbon Dioxide Level 24.1 MEQ/L 23.3 MEQ/L Neutrophils (%) (Auto) 78.1 % Lymphocytes (%) (Auto) 14.9 % Monocytes (%) (Auto) 6.7 % Eosinophils (%) (Auto) 0.1 % Basophils (%) (Auto) 0.2 % Neutrophils # (Auto) 11.8 TH/MM3 Lymphocytes # (Auto) 2.2 TH/MM3 Monocytes # (Auto) 1.0 TH/MM3 Eosinophils # (Auto) 0.0 TH/MM3 Basophils # (Auto) 0.0 TH/MM3 CBC Comment DIFF FINAL Differential Comment White Blood Count 13.1 TH/MM3 Red Blood Count 4.45 MIL/MM3 Hemoglobin 14.1 GM/DL Hematocrit 41.5 % Mean Corpuscular Volume 93.1 FL Mean Corpuscular Hemoglobin 31.7 PG Mean Corpuscular Hemoglobin Concent 34.0 % Red Cell Distribution Width 14.2 % Platelet Count 147 TH/MM3 Mean Platelet Volume 9.3 FL Anion Gap 9 MEQ/L Estimat Glomerular Filtration Rate 32 ML/MIN Objective Remarks GENERAL: Obese patient, no acute distress. SKIN: Focused skin assessment warm/dry. No lacerations, abrasions, or ecchymosis. HEAD: Atraumatic. Normocephalic. EYES: Pupils equal and round. No scleral icterus. No injection or drainage. ENT: Mucous membranes pink and moist. NECK: Trachea midline. No JVD. CARDIOVASCULAR: Regular rate and rhythm. Bilateral dorsalis pedis pulses are brisk and equal. RESPIRATORY: No accessory muscle use. Clear to auscultation. Breath sounds equal bilaterally. GASTROINTESTINAL: Abdomen soft, non-tender, nondistended. MUSCULOSKELETAL: Right hip with clean surgical wound. NEUROLOGICAL: Awake and alert. No obvious cranial nerve deficits. Motor grossly within normal limits. Normal speech. PSYCHIATRIC: Appropriate mood and affect; insight and judgment normal. Medications and IVs Current Medications Medications (Trade) Dose Ordered Sig/Porsha Route Start Time Stop Time Status Last Admin (Tylenol) 650 mg Q4H PRN PO 12/12/16 00:15 Lactated Ringer's 1,000 ml @ 30 mls/hr Q24H PRN IV 12/12/16 01:00 12/15/16 00:59 12/12/16 09:19 Sodium Chloride 500 ml @ 30 mls/hr [id number] PRN IV 12/12/16 01:00 12/15/16 00:59 (Betadine 5% Antisepsis Kit) 1 applic REAL ESTATE PORTFOLIO MANAGER PRN EACH NARE 12/12/16 01:00 12/15/16 00:59 (Chlorhexidine 2% Cloth) 3 pack REAL ESTATE PORTFOLIO MANAGER PRN TOPICAL 12/12/16 01:00 12/15/16 00:59 Sodium Chloride 1,000 ml @ 100 mls/hr Q10H IV 12/12/16 11:36 12/13/16 08:51 (NS Flush) 2 ml UNSCH PRN IVF 12/12/16 11:45 (NS Flush) 2 ml BID IVF 12/12/16 21:00 12/13/16 08:53 (Lovenox Inj) 30 mg Q24H SQ 12/13/16 11:00 12/22/16 11:01 12/13/16 11:40 ([place] 5-325 Mg) 1 tab Q4H PRN PO 12/12/16 11:45 ([place] 5-325 Mg) 2 tab Q4H PRN PO 12/12/16 11:45 12/13/16 11:38 (Theragran M Tab) 1 tab BID PO 12/13/16 21:00 02/11/17 20:59 (Zofran Inj) 4 mg Q6H PRN IVP 12/12/16 11:45 12/13/16 05:24 (Colace) 100 mg BID PO 12/13/16 21:00 (Mag-Al Plus Susp Liq) 30 ml Q6H PRN PO 12/12/16 11:45 (Ambien) 5 mg HS PRN PO 12/12/16 11:45 (Dulcolax Supp) 10 mg DAILY PRN RECTAL 12/12/16 11:45 (Milk Of Magnesia Liq) 30 ml DAILY PRN PO 12/12/16 11:45 (Narcan Inj) 0.4 mg UNSCH PRN IV PUSH 12/12/16 11:45 (Benadryl Inj) 25 mg Q6H PRN IV PUSH 12/12/16 11:45 (Morphine Inj) 2 mg Q3H PRN IV PUSH 12/12/16 11:45 (Lipitor) 20 mg HS PO 12/12/16 21:00 12/12/16 20:22 (Protonix) 40 mg DAILY PO 12/12/16 15:00 12/13/16 08:47 (Flomax) 0.4 mg HS PO 12/12/16 21:00 12/12/16 20:30 (NovoLOG SUPPLEMENTAL SCALE) 1 ACHS SLIDING SCALE SQ 12/12/16 21:00 12/13/16 12:00 (Prinivil) 10 mg DAILY PO 12/13/16 09:00 12/13/16 08:47 (NovoLIN R INJ) 5 units TIDAC SQ 12/13/16 08:00 12/13/16 12:00 (Levemir Inj) 12 units BID SQ 12/13/16 21:00 A/P Assessment and Plan 1. Status post fall with secondary Right hip Intertrochanteric Fracture status post intramedullary nail by Doctor Tim Tabares continue pain medicine, consult Powder Blender and PT. 2. CAD stable continue Home medicines. 3. Hyperlipidemia continue statins 4. BPH continue Flomax 5. DM II stable continue ADA diet and heart healthy diet, sliding stable, Long lasting insulin, and scheduled insulin with every meal, at this time discussed with patient will increase Insulin to try to get more controlled his blood sugar, at this time increased Levemir to 20 units BID and scheduled insulin to 8 units with every meal. 6. CKD IV stable 7. Obesity strongly recommended diet and exercise as outpatient DVT prophylaxis with Lovenox. Code Status Full Code. Discussed Condition With Patient. Discharge Planning Expected discharge tomorrow Roberto Carlos Kaiser MD Dec 13, 2016 2:23 pm
--- NOTE | 2016-12-13 18:15 | PD.ORT.PN ---
Subjective Subjective Remarks mild hip pain Objective Vitals Vital Signs Date Time Temp Pulse Resp B/P (MAP) Pulse Ox O2 Delivery O2 Flow Rate FiO2 12/13/16 16:00 96.2 85 15 130/62 (84) 90 12/13/16 12:00 98.0 89 15 135/71 (92) 93 12/13/16 08:00 97.5 84 15 141/64 (89) 92 12/13/16 04:00 97.0 86 20 150/68 (95) 92 12/13/16 00:00 98.6 83 20 137/69 (91) 92 12/12/16 21:10 Nasal Cannula 2.00 12/12/16 20:00 97.5 90 20 141/79 (99) 95 I/O 12/12/16 12/12/16 12/12/16 12/13/16 12/13/16 12/13/16 07:00 15:00 23:00 07:00 15:00 23:00 Intake Total 0 ml 610.1 ml 320 ml 450 ml Output Total 325 ml 75 ml 600 ml Balance -325 ml 535.1 ml -280 ml 450 ml Intake Oral 0 ml 120 ml IV Total 110.1 ml 200 ml 450 ml Other 500 ml Output Urine Total 325 ml 600 ml Estimated Blood Loss 75 ml # Voids 3 # Bowel Movements 0 0 Result Diagram: 12/13/16 0510 12/13/16 0510 Objective Remarks Right hip is dressed and clean, no surrounding erythema. calf soft, NT. moves toes well, 2+ DP Assessment & Plan Assessment and Plan POD #1 s/p R hip troch nail Renal inssuficiency WBAT Lovenox 40 daily (discussed with pharmacy post-op) D/C snf when med cleared Tim Tabares MD Dec 13, 2016 18:15
[2016-12-13] MEDS: DOCUSATE SODIUM 100 MG CAP PO SCH (20:16)
[2016-12-13] MEDS: TAMSULOSIN HCL 0.4 MG CAP PO SCH (20:16)
[2016-12-13] MEDS: MULTIVITAMINS/MINERALS THERAPEUTIC TAB PO SCH (20:16)
[2016-12-13] MEDS: ATORVASTATIN 20 MG TAB PO SCH (20:16)
[2016-12-13] MEDS ORDERED: INSULIN DETEMIR 100 UNITS/ML VIAL SQ SCH (21:00)
[2016-12-14] VITALS (7 sets, daily range): BP systolic 134–147; BP diastolic 66–90; PULSE 72–81; RESP 15–18; TEMP 96.5–98.4; O2SAT 92–96
[2016-12-14] MEDS: ACETAMINOPHEN/HYDROcodone 325 MG/5 MG TAB PO PRN ×2 (05:19→09:25)
[2016-12-14 07:26] LABS: HEMOGLOBIN 13.4 GM/DL (13.0-17.0); MEAN CORPUSCULAR HEMOGLOBIN 31.9 PG (27.0-34.0); MEAN CORPUSCULAR HGB CONC 34.3 % (32.0-36.0); MEAN PLATELET VOLUME 9.2 FL (7.0-11.0); PLATELET COUNT 146 TH/MM3 (150-450); RED CELL DISTRIBUTION WIDTH 13.9 % (11.6-17.2); WHITE BLOOD COUNT 10.7 TH/MM3 (4.0-11.0)
[2016-12-14] MEDS: MULTIVITAMINS/MINERALS THERAPEUTIC TAB PO SCH ×2 (09:24→20:33)
[2016-12-14] MEDS: DOCUSATE SODIUM 100 MG CAP PO SCH ×2 (09:25→20:33)
[2016-12-14] MEDS: PANTOPRAZOLE SOD 40 MG DELAYED RELEASE TAB PO SCH (09:25)
[2016-12-14] MEDS: LISINOPRIL 10 MG TAB PO SCH (09:25)
[2016-12-14] MEDS: INSULIN DETEMIR 100 UNITS/ML VIAL SQ SCH ×2 (09:25→20:34)
[2016-12-14] MEDS: INSULIN ASPART SUPPLEMENTAL SCALE SQ SCH ×4 (09:26→20:33)
[2016-12-14] MEDS: SODIUM CHLORIDE 0.9% FLUSH 5 ML FLUSH IVF SCH ×2 (09:26→20:34)
[2016-12-14] MEDS: INSULIN HUMAN REGULAR 1,000 UNITS/10 ML VIAL SQ SCH ×3 (09:26→17:00)
--- NOTE | 2016-12-14 10:49 | HHI.PR ---
Subjective Remarks The patient was resting comfortably in bed. He had no acute complaints. He was looking forward to going to a rehabilitation facility. Discussed with case management and nursing. Objective Vitals Vital Signs Date Time Temp Pulse Resp B/P (MAP) Pulse Ox O2 Delivery O2 Flow Rate FiO2 12/14/16 08:00 96.5 76 18 143/66 (91) 93 12/14/16 04:04 98.4 73 18 138/69 (92) 94 12/14/16 00:06 98.4 72 18 134/69 (90) 94 12/13/16 20:06 98.6 85 18 147/63 (91) 94 12/13/16 19:42 70 12/13/16 16:00 96.2 85 15 130/62 (84) 90 12/13/16 12:00 98.0 89 15 135/71 (92) 93 I/O 12/13/16 12/13/16 12/13/16 12/14/16 12/14/16 12/14/16 07:00 15:00 23:00 07:00 15:00 23:00 Intake Total 320 ml 450 ml 1110 ml 240 ml Output Total 600 ml 300 ml 700 ml Balance -280 ml 450 ml 810 ml -460 ml Intake Oral 120 ml 360 ml 240 ml IV Total 200 ml 450 ml 750 ml Output Urine Total 600 ml 300 ml 700 ml # Bowel Movements 0 0 Result Diagram: 12/14/16 0625 12/13/16 0510 Imaging Last Impressions Hip X-Ray 12/12/16 0000 Signed Impressions: Service Date/Time: Monday, December 12, 2016 11:00 - CONCLUSION: 1. Status post right hip ORIF, as above. London Chin MD Lower Extremity CT 12/11/16 0000 Signed Impressions: Service Date/Time: Sunday, December 11, 2016 23:50 - CONCLUSION: Mildly comminuted mildly impacted intertrochanteric fracture of the proximal right femur. Mitch Chaney MD Hip and Pelvis X-Ray 12/11/16 0000 Signed Impressions: Service Date/Time: Sunday, December 11, 2016 22:13 - CONCLUSION: Intertrochanteric fracture the right hip Mathieu Walker MD Femur X-Ray 12/11/16 0000 Signed Impressions: Service Date/Time: Sunday, December 11, 2016 22:19 - CONCLUSION: Intertrochanteric fracture right hip Mathieu Walker MD Chest X-Ray 12/11/16 0000 Signed Impressions: Service Date/Time: Sunday, December 11, 2016 22:32 - CONCLUSION: Normal examination. Mathieu Walker MD Objective Remarks GENERAL: Resting comfortably, in no acute distress. SKIN: Focused skin assessment warm/dry. No lacerations, abrasions, or ecchymosis. HEAD: Atraumatic. Normocephalic. EYES: Pupils equal and round. No scleral icterus. No injection or drainage. ENT: Mucous membranes pink and moist. NECK: Trachea midline. No JVD. CARDIOVASCULAR: Regular rate and rhythm. No murmur appreciated. RESPIRATORY: No accessory muscle use. Clear to auscultation. Breath sounds equal bilaterally. GASTROINTESTINAL: Abdomen soft, non-tender, nondistended. MUSCULOSKELETAL: Right hip with clean surgical wound. Nontender. NEUROLOGICAL: Awake and alert. No obvious cranial nerve deficits. Motor grossly within normal limits. Normal speech. PSYCHIATRIC: Appropriate mood and affect; insight and judgment normal. Procedures Right hip intertrochanteric fracture status post intramedullary nail Medications and IVs Current Medications Medications (Trade) Dose Ordered Sig/Porsha Route Start Time Stop Time Status Last Admin (Tylenol) 650 mg Q4H PRN PO 12/12/16 00:15 Lactated Ringer's 1,000 ml @ 30 mls/hr Q24H PRN IV 12/12/16 01:00 12/15/16 00:59 12/12/16 09:19 Sodium Chloride 500 ml @ 30 mls/hr [id number] PRN IV 12/12/16 01:00 12/15/16 00:59 (Betadine 5% Antisepsis Kit) 1 applic LIDAR ANALYST PRN EACH NARE 12/12/16 01:00 12/15/16 00:59 (Chlorhexidine 2% Cloth) 3 pack LIDAR ANALYST PRN TOPICAL 12/12/16 01:00 12/15/16 00:59 (NS Flush) 2 ml UNSCH PRN IVF 12/12/16 11:45 (NS Flush) 2 ml BID IVF 12/12/16 21:00 12/14/16 09:26 (Lovenox Inj) 30 mg Q24H SQ 12/13/16 11:00 12/22/16 11:01 12/13/16 11:40 ([place] 5-325 Mg) 1 tab Q4H PRN PO 12/12/16 11:45 12/14/16 09:25 ([place] 5-325 Mg) 2 tab Q4H PRN PO 12/12/16 11:45 12/13/16 11:38 (Theragran M Tab) 1 tab BID PO 12/13/16 21:00 02/11/17 20:59 12/14/16 09:24 (Zofran Inj) 4 mg Q6H PRN IVP 12/12/16 11:45 12/13/16 05:24 (Colace) 100 mg BID PO 12/13/16 21:00 12/14/16 09:25 (Mag-Al Plus Susp Liq) 30 ml Q6H PRN PO 12/12/16 11:45 (Ambien) 5 mg HS PRN PO 12/12/16 11:45 (Dulcolax Supp) 10 mg DAILY PRN RECTAL 12/12/16 11:45 (Milk Of Magnesia Liq) 30 ml DAILY PRN PO 12/12/16 11:45 (Narcan Inj) 0.4 mg UNSCH PRN IV PUSH 12/12/16 11:45 (Benadryl Inj) 25 mg Q6H PRN IV PUSH 12/12/16 11:45 (Morphine Inj) 2 mg Q3H PRN IV PUSH 12/12/16 11:45 (Lipitor) 20 mg HS PO 12/12/16 21:00 12/13/16 20:16 (Protonix) 40 mg DAILY PO 12/12/16 15:00 12/14/16 09:25 (Flomax) 0.4 mg HS PO 12/12/16 21:00 12/13/16 20:16 (NovoLOG SUPPLEMENTAL SCALE) 1 ACHS SLIDING SCALE SQ 12/12/16 21:00 12/14/16 09:26 (Prinivil) 10 mg DAILY PO 12/13/16 09:00 12/14/16 09:25 (Levemir Inj) 20 units BID SQ 12/13/16 21:00 12/14/16 09:25 (NovoLIN R INJ) 8 units TIDAC SQ 12/13/16:00 12/14/16 09:26 A/P Assessment and Plan 1. Status post fall with secondary Right hip Intertrochanteric Fracture status post intramedullary nail by Doctor Tim Tabares continue pain medicine with a bowel regimen. Consult Doubling Machine Operator and PT. Lovenox per ortho. 2. CAD stable continue Home medicines. 3. Hyperlipidemia continue statins 4. BPH continue Flomax 5. DM II stable continue ADA diet and heart healthy diet, sliding scale. At this time increased Levemir to 20 units BID and scheduled insulin to 8 units with every meal. Resume home regimen upon discharge. 6. CKD IV stable DVT prophylaxis with Lovenox. Discharge Planning D/c to SNF when bed available Alfie Estevez DO Dec 14, 2016 10:49
--- NOTE | 2016-12-14 10:49 | HHI.PR ---
Subjective Remarks The patient was resting comfortably in bed. He had no acute complaints. He was looking forward to going to a rehabilitation facility. Discussed with case management and nursing. Objective Vitals Vital Signs Date Time Temp Pulse Resp B/P (MAP) Pulse Ox O2 Delivery O2 Flow Rate FiO2 12/14/16 08:00 96.5 76 18 143/66 (91) 93 12/14/16 04:04 98.4 73 18 138/69 (92) 94 12/14/16 00:06 98.4 72 18 134/69 (90) 94 12/13/16 20:06 98.6 85 18 147/63 (91) 94 12/13/16 19:42 70 12/13/16 16:00 96.2 85 15 130/62 (84) 90 12/13/16 12:00 98.0 89 15 135/71 (92) 93 I/O 12/13/16 12/13/16 12/13/16 12/14/16 12/14/16 12/14/16 07:00 15:00 23:00 07:00 15:00 23:00 Intake Total 320 ml 450 ml 1110 ml 240 ml Output Total 600 ml 300 ml 700 ml Balance -280 ml 450 ml 810 ml -460 ml Intake Oral 120 ml 360 ml 240 ml IV Total 200 ml 450 ml 750 ml Output Urine Total 600 ml 300 ml 700 ml # Bowel Movements 0 0 Result Diagram: 12/14/16 0625 12/13/16 0510 Imaging Last Impressions Hip X-Ray 12/12/16 0000 Signed Impressions: Service Date/Time: Monday, December 12, 2016 11:00 - CONCLUSION: 1. Status post right hip ORIF, as above. London Chin MD Lower Extremity CT 12/11/16 0000 Signed Impressions: Service Date/Time: Sunday, December 11, 2016 23:50 - CONCLUSION: Mildly comminuted mildly impacted intertrochanteric fracture of the proximal right femur. Mitch Chaney MD Hip and Pelvis X-Ray 12/11/16 0000 Signed Impressions: Service Date/Time: Sunday, December 11, 2016 22:13 - CONCLUSION: Intertrochanteric fracture the right hip Mathieu Walker MD Femur X-Ray 12/11/16 0000 Signed Impressions: Service Date/Time: Sunday, December 11, 2016 22:19 - CONCLUSION: Intertrochanteric fracture right hip Mathieu Walker MD Chest X-Ray 12/11/16 0000 Signed Impressions: Service Date/Time: Sunday, December 11, 2016 22:32 - CONCLUSION: Normal examination. Mathieu Walker MD Objective Remarks GENERAL: Resting comfortably, in no acute distress. SKIN: Focused skin assessment warm/dry. No lacerations, abrasions, or ecchymosis. HEAD: Atraumatic. Normocephalic. EYES: Pupils equal and round. No scleral icterus. No injection or drainage. ENT: Mucous membranes pink and moist. NECK: Trachea midline. No JVD. CARDIOVASCULAR: Regular rate and rhythm. No murmur appreciated. RESPIRATORY: No accessory muscle use. Clear to auscultation. Breath sounds equal bilaterally. GASTROINTESTINAL: Abdomen soft, non-tender, nondistended. MUSCULOSKELETAL: Right hip with clean surgical wound. Nontender. NEUROLOGICAL: Awake and alert. No obvious cranial nerve deficits. Motor grossly within normal limits. Normal speech. PSYCHIATRIC: Appropriate mood and affect; insight and judgment normal. Procedures Right hip intertrochanteric fracture status post intramedullary nail Medications and IVs Current Medications Medications (Trade) Dose Ordered Sig/Porsha Route Start Time Stop Time Status Last Admin (Tylenol) 650 mg Q4H PRN PO 12/12/16 00:15 Lactated Ringer's 1,000 ml @ 30 mls/hr Q24H PRN IV 12/12/16 01:00 12/15/16 00:59 12/12/16 09:19 Sodium Chloride 500 ml @ 30 mls/hr [id number] PRN IV 12/12/16 01:00 12/15/16 00:59 (Betadine 5% Antisepsis Kit) 1 applic STEAM POWER PLANT OPERATOR PRN EACH NARE 12/12/16 01:00 12/15/16 00:59 (Chlorhexidine 2% Cloth) 3 pack STEAM POWER PLANT OPERATOR PRN TOPICAL 12/12/16 01:00 12/15/16 00:59 (NS Flush) 2 ml UNSCH PRN IVF 12/12/16 11:45 (NS Flush) 2 ml BID IVF 12/12/16 21:00 12/14/16 09:26 (Lovenox Inj) 30 mg Q24H SQ 12/13/16 11:00 12/22/16 11:01 12/13/16 11:40 ([place] 5-325 Mg) 1 tab Q4H PRN PO 12/12/16 11:45 12/14/16 09:25 ([place] 5-325 Mg) 2 tab Q4H PRN PO 12/12/16 11:45 12/13/16 11:38 (Theragran M Tab) 1 tab BID PO 12/13/16 21:00 02/11/17 20:59 12/14/16 09:24 (Zofran Inj) 4 mg Q6H PRN IVP 12/12/16 11:45 12/13/16 05:24 (Colace) 100 mg BID PO 12/13/16 21:00 12/14/16 09:25 (Mag-Al Plus Susp Liq) 30 ml Q6H PRN PO 12/12/16 11:45 (Ambien) 5 mg HS PRN PO 12/12/16 11:45 (Dulcolax Supp) 10 mg DAILY PRN RECTAL 12/12/16 11:45 (Milk Of Magnesia Liq) 30 ml DAILY PRN PO 12/12/16 11:45 (Narcan Inj) 0.4 mg UNSCH PRN IV PUSH 12/12/16 11:45 (Benadryl Inj) 25 mg Q6H PRN IV PUSH 12/12/16 11:45 (Morphine Inj) 2 mg Q3H PRN IV PUSH 12/12/16 11:45 (Lipitor) 20 mg HS PO 12/12/16 21:00 12/13/16 20:16 (Protonix) 40 mg DAILY PO 12/12/16 15:00 12/14/16 09:25 (Flomax) 0.4 mg HS PO 12/12/16 21:00 12/13/16 20:16 (NovoLOG SUPPLEMENTAL SCALE) 1 ACHS SLIDING SCALE SQ 12/12/16 21:00 12/14/16 09:26 (Prinivil) 10 mg DAILY PO 12/13/16 09:00 12/14/16 09:25 (Levemir Inj) 20 units BID SQ 12/13/16 21:00 12/14/16 09:25 (NovoLIN R INJ) 8 units TIDAC SQ 12/13/16:00 12/14/16 09:26 A/P Assessment and Plan 1. Status post fall with secondary Right hip Intertrochanteric Fracture status post intramedullary nail by Doctor Tim Tabares continue pain medicine with a bowel regimen. Consult Statistical Financial Analyst and PT. Lovenox per ortho. 2. CAD stable continue Home medicines. 3. Hyperlipidemia continue statins 4. BPH continue Flomax 5. DM II stable continue ADA diet and heart healthy diet, sliding scale. At this time increased Levemir to 20 units BID and scheduled insulin to 8 units with every meal. Resume home regimen upon discharge. 6. CKD IV stable DVT prophylaxis with Lovenox. Discharge Planning D/c to SNF when bed available Alfie Estevez DO Dec 14, 2016 10:49
--- NOTE | 2016-12-14 10:49 | HHI.PR ---
Subjective Remarks The patient was resting comfortably in bed. He had no acute complaints. He was looking forward to going to a rehabilitation facility. Discussed with case management and nursing. Objective Vitals Vital Signs Date Time Temp Pulse Resp B/P (MAP) Pulse Ox O2 Delivery O2 Flow Rate FiO2 12/14/16 08:00 96.5 76 18 143/66 (91) 93 12/14/16 04:04 98.4 73 18 138/69 (92) 94 12/14/16 00:06 98.4 72 18 134/69 (90) 94 12/13/16 20:06 98.6 85 18 147/63 (91) 94 12/13/16 19:42 70 12/13/16 16:00 96.2 85 15 130/62 (84) 90 12/13/16 12:00 98.0 89 15 135/71 (92) 93 I/O 12/13/16 12/13/16 12/13/16 12/14/16 12/14/16 12/14/16 07:00 15:00 23:00 07:00 15:00 23:00 Intake Total 320 ml 450 ml 1110 ml 240 ml Output Total 600 ml 300 ml 700 ml Balance -280 ml 450 ml 810 ml -460 ml Intake Oral 120 ml 360 ml 240 ml IV Total 200 ml 450 ml 750 ml Output Urine Total 600 ml 300 ml 700 ml # Bowel Movements 0 0 Result Diagram: 12/14/16 0625 12/13/16 0510 Imaging Last Impressions Hip X-Ray 12/12/16 0000 Signed Impressions: Service Date/Time: Monday, December 12, 2016 11:00 - CONCLUSION: 1. Status post right hip ORIF, as above. London Chin MD Lower Extremity CT 12/11/16 0000 Signed Impressions: Service Date/Time: Sunday, December 11, 2016 23:50 - CONCLUSION: Mildly comminuted mildly impacted intertrochanteric fracture of the proximal right femur. Mitch Chaney MD Hip and Pelvis X-Ray 12/11/16 0000 Signed Impressions: Service Date/Time: Sunday, December 11, 2016 22:13 - CONCLUSION: Intertrochanteric fracture the right hip Mathieu Walker MD Femur X-Ray 12/11/16 0000 Signed Impressions: Service Date/Time: Sunday, December 11, 2016 22:19 - CONCLUSION: Intertrochanteric fracture right hip Mathieu Walker MD Chest X-Ray 12/11/16 0000 Signed Impressions: Service Date/Time: Sunday, December 11, 2016 22:32 - CONCLUSION: Normal examination. Mathieu Walker MD Objective Remarks GENERAL: Resting comfortably, in no acute distress. SKIN: Focused skin assessment warm/dry. No lacerations, abrasions, or ecchymosis. HEAD: Atraumatic. Normocephalic. EYES: Pupils equal and round. No scleral icterus. No injection or drainage. ENT: Mucous membranes pink and moist. NECK: Trachea midline. No JVD. CARDIOVASCULAR: Regular rate and rhythm. No murmur appreciated. RESPIRATORY: No accessory muscle use. Clear to auscultation. Breath sounds equal bilaterally. GASTROINTESTINAL: Abdomen soft, non-tender, nondistended. MUSCULOSKELETAL: Right hip with clean surgical wound. Nontender. NEUROLOGICAL: Awake and alert. No obvious cranial nerve deficits. Motor grossly within normal limits. Normal speech. PSYCHIATRIC: Appropriate mood and affect; insight and judgment normal. Procedures Right hip intertrochanteric fracture status post intramedullary nail Medications and IVs Current Medications Medications (Trade) Dose Ordered Sig/Porsha Route Start Time Stop Time Status Last Admin (Tylenol) 650 mg Q4H PRN PO 12/12/16 00:15 Lactated Ringer's 1,000 ml @ 30 mls/hr Q24H PRN IV 12/12/16 01:00 12/15/16 00:59 12/12/16 09:19 Sodium Chloride 500 ml @ 30 mls/hr [id number] PRN IV 12/12/16 01:00 12/15/16 00:59 (Betadine 5% Antisepsis Kit) 1 applic BAND SAW OPERATOR PRN EACH NARE 12/12/16 01:00 12/15/16 00:59 (Chlorhexidine 2% Cloth) 3 pack BAND SAW OPERATOR PRN TOPICAL 12/12/16 01:00 12/15/16 00:59 (NS Flush) 2 ml UNSCH PRN IVF 12/12/16 11:45 (NS Flush) 2 ml BID IVF 12/12/16 21:00 12/14/16 09:26 (Lovenox Inj) 30 mg Q24H SQ 12/13/16 11:00 12/22/16 11:01 12/13/16 11:40 ([place] 5-325 Mg) 1 tab Q4H PRN PO 12/12/16 11:45 12/14/16 09:25 ([place] 5-325 Mg) 2 tab Q4H PRN PO 12/12/16 11:45 12/13/16 11:38 (Theragran M Tab) 1 tab BID PO 12/13/16 21:00 02/11/17 20:59 12/14/16 09:24 (Zofran Inj) 4 mg Q6H PRN IVP 12/12/16 11:45 12/13/16 05:24 (Colace) 100 mg BID PO 12/13/16 21:00 12/14/16 09:25 (Mag-Al Plus Susp Liq) 30 ml Q6H PRN PO 12/12/16 11:45 (Ambien) 5 mg HS PRN PO 12/12/16 11:45 (Dulcolax Supp) 10 mg DAILY PRN RECTAL 12/12/16 11:45 (Milk Of Magnesia Liq) 30 ml DAILY PRN PO 12/12/16 11:45 (Narcan Inj) 0.4 mg UNSCH PRN IV PUSH 12/12/16 11:45 (Benadryl Inj) 25 mg Q6H PRN IV PUSH 12/12/16 11:45 (Morphine Inj) 2 mg Q3H PRN IV PUSH 12/12/16 11:45 (Lipitor) 20 mg HS PO 12/12/16 21:00 12/13/16 20:16 (Protonix) 40 mg DAILY PO 12/12/16 15:00 12/14/16 09:25 (Flomax) 0.4 mg HS PO 12/12/16 21:00 12/13/16 20:16 (NovoLOG SUPPLEMENTAL SCALE) 1 ACHS SLIDING SCALE SQ 12/12/16 21:00 12/14/16 09:26 (Prinivil) 10 mg DAILY PO 12/13/16 09:00 12/14/16 09:25 (Levemir Inj) 20 units BID SQ 12/13/16 21:00 12/14/16 09:25 (NovoLIN R INJ) 8 units TIDAC SQ 12/13/16:00 12/14/16 09:26 A/P Assessment and Plan 1. Status post fall with secondary Right hip Intertrochanteric Fracture status post intramedullary nail by Doctor Tim Tabares continue pain medicine with a bowel regimen. Consult Cleaning Laborer and PT. Lovenox per ortho. 2. CAD stable continue Home medicines. 3. Hyperlipidemia continue statins 4. BPH continue Flomax 5. DM II stable continue ADA diet and heart healthy diet, sliding scale. At this time increased Levemir to 20 units BID and scheduled insulin to 8 units with every meal. Resume home regimen upon discharge. 6. CKD IV stable DVT prophylaxis with Lovenox. Discharge Planning D/c to SNF when bed available Alfie Estevez DO Dec 14, 2016 10:49
--- NOTE | 2016-12-14 10:59 | HHI.DCPOC ---
Discharge Care Plan Diagnosis: (1) Intertrochanteric fracture of right hip (2) Diabetes mellitus (3) Closed right hip fracture (4) CKD (chronic kidney disease), stage III Goals to Promote Your Health * To prevent worsening of your condition and complications * To maintain your health at the optimal level Directions to Meet Your Goals Take your medications as prescribed Follow your dietary instruction Follow activity as directed Keep your appointments as scheduled Take your immunizations and boosters as scheduled If your symptoms worsen call your PCP, if no PCP go to Urgent Care Center or Emergency Room Smoking is Dangerous to Your Health. Avoid second hand smoke Call the 24-hour hour crisis hotline for domestic abuse at Alfie Estevez DO Dec 14, 2016 10:59
--- NOTE | 2016-12-14 10:59 | HHI.DCPOC ---
Discharge Care Plan Diagnosis: (1) Intertrochanteric fracture of right hip (2) Diabetes mellitus (3) Closed right hip fracture (4) CKD (chronic kidney disease), stage III Goals to Promote Your Health * To prevent worsening of your condition and complications * To maintain your health at the optimal level Directions to Meet Your Goals Take your medications as prescribed Follow your dietary instruction Follow activity as directed Keep your appointments as scheduled Take your immunizations and boosters as scheduled If your symptoms worsen call your PCP, if no PCP go to Urgent Care Center or Emergency Room Smoking is Dangerous to Your Health. Avoid second hand smoke Call the 24-hour hour crisis hotline for domestic abuse at Alfie Estevez DO Dec 14, 2016 10:59
--- NOTE | 2016-12-14 10:59 | HHI.DCPOC ---
Discharge Care Plan Diagnosis: (1) Intertrochanteric fracture of right hip (2) Diabetes mellitus (3) Closed right hip fracture (4) CKD (chronic kidney disease), stage III Goals to Promote Your Health * To prevent worsening of your condition and complications * To maintain your health at the optimal level Directions to Meet Your Goals Take your medications as prescribed Follow your dietary instruction Follow activity as directed Keep your appointments as scheduled Take your immunizations and boosters as scheduled If your symptoms worsen call your PCP, if no PCP go to Urgent Care Center or Emergency Room Smoking is Dangerous to Your Health. Avoid second hand smoke Call the 24-hour hour crisis hotline for domestic abuse at Alfie Estevez DO Dec 14, 2016 10:59
--- NOTE | 2016-12-14 12:26 | PD.ORT.PN ---
Subjective Post Op Day #: 2 Subjective Remarks Patient is resting in bed in NAD. Patient reports mild pain to the right hip Objective Vitals Vital Signs Date Time Temp Pulse Resp B/P (MAP) Pulse Ox O2 Delivery O2 Flow Rate FiO2 12/14/16 08:00 96.5 76 18 143/66 (91) 93 12/14/16 04:04 98.4 73 18 138/69 (92) 94 12/14/16 00:06 98.4 72 18 134/69 (90) 94 12/13/16 20:06 98.6 85 18 147/63 (91) 94 12/13/16 19:42 70 12/13/16 16:00 96.2 85 15 130/62 (84) 90 I/O 12/13/16 12/13/16 12/13/16 12/14/16 12/14/16 12/14/16 07:00 15:00 23:00 07:00 15:00 23:00 Intake Total 320 ml 450 ml 1110 ml 240 ml Output Total 600 ml 300 ml 700 ml Balance -280 ml 450 ml 810 ml -460 ml Intake Oral 120 ml 360 ml 240 ml IV Total 200 ml 450 ml 750 ml Output Urine Total 600 ml 300 ml 700 ml # Bowel Movements 0 0 Result Diagram: 12/14/16 0625 12/13/16 0510 Procedures s/p R hip troch nail Objective Remarks Right hip is dressed and clean, no surrounding erythema. calf soft, NT. moves toes well, 2+ DP Assessment & Plan Ortho Post Op Day #: 2 Problem List: Assessment and Plan POD #2 s/p R hip troch nail Renal insufficiency 1. WBAT RLE 2. Lovenox 40 daily (discussed with pharmacy post-op) 3. Stable for discharge to SNF when med cleared 4. Ice to the right hip PRN 5. F/U in the office with Dr. Tabares or VJ Billy Daniel Scott ARNP Dec 14, 2016 12:26
[2016-12-14] MEDS: MAGNESIUM HYDROXIDE SUSP 30 ML CUP PO PRN ×2 (13:14→20:33)
[2016-12-14] MEDS: ENOXAPARIN SODIUM 30 MG/0.3 ML SYRINGE SQ SCH (13:14)
[2016-12-14] MEDS: ATORVASTATIN 20 MG TAB PO SCH (20:33)
[2016-12-14] MEDS: TAMSULOSIN HCL 0.4 MG CAP PO SCH (20:34)
[2016-12-15 00:13] VITALS: BP 136/68; PULSE 84; RESP 16; TEMP 95.5; O2SAT 96
[2016-12-15 06:43] LABS: HEMATOCRIT 39.6 % (39.0-51.0); HEMOGLOBIN 13.5 GM/DL (13.0-17.0); MEAN CORPUSCULAR HEMOGLOBIN 31.4 PG (27.0-34.0); MEAN CORPUSCULAR HGB CONC 34.1 % (32.0-36.0); MEAN PLATELET VOLUME 8.8 FL (7.0-11.0); PLATELET COUNT 166 TH/MM3 (150-450); RED CELL DISTRIBUTION WIDTH 13.7 % (11.6-17.2); WHITE BLOOD COUNT 11.2 TH/MM3 (4.0-11.0)
[2016-12-15 08:00] VITALS: BP 151/75; PULSE 73; RESP 20; TEMP 98.1; O2SAT 94
[2016-12-15] MEDS: LISINOPRIL 10 MG TAB PO SCH (09:19)
[2016-12-15] MEDS: MAGNESIUM HYDROXIDE SUSP 30 ML CUP PO PRN (09:19)
[2016-12-15] MEDS: MULTIVITAMINS/MINERALS THERAPEUTIC TAB PO SCH (09:19)
[2016-12-15] MEDS: PANTOPRAZOLE SOD 40 MG DELAYED RELEASE TAB PO SCH (09:19)
[2016-12-15] MEDS: DOCUSATE SODIUM 100 MG CAP PO SCH (09:19)
[2016-12-15] MEDS: INSULIN DETEMIR 100 UNITS/ML VIAL SQ SCH (09:19)
[2016-12-15] MEDS: SODIUM CHLORIDE 0.9% FLUSH 5 ML FLUSH IVF SCH (09:20)
[2016-12-15] MEDS: INSULIN ASPART SUPPLEMENTAL SCALE SQ SCH ×2 (09:20→13:19)
[2016-12-15] MEDS: INSULIN HUMAN REGULAR 1,000 UNITS/10 ML VIAL SQ SCH ×2 (09:20→13:19)
[2016-12-15] MEDS ORDERED: BISACODYL 10 MG SUPP RECTAL ONE (11:30)
--- NOTE | 2016-12-15 11:51 | HHI.DS ---
Discharge Summary Admission Date Dec 11, 2016 at 23:15 Discharge Date: Dec 15, 2016 Admitting Diagnosis closed right hip fracture (1) Intertrochanteric fracture of right hip ICD Code: S72.141A - Displaced intertrochanteric fracture of right femur, initial encounter for closed fracture (2) Diabetes mellitus ICD Code: E11.9 - Type 2 diabetes mellitus without complications Status: Chronic (3) Closed right hip fracture ICD Code: S72.001A - Fracture of unspecified part of neck of right femur, initial encounter for closed fracture Diagnosis: Principal Status: Acute (4) CKD (chronic kidney disease), stage III ICD Code: N18.3 - Chronic kidney disease, stage 3 (moderate) Status: Chronic Procedures Right hip intertrochanteric fracture status post intramedullary nail Brief History - From Admission This is a pleasant 76 y/o male with History of right knee arthroplasty, brought in by EMS due to status post fall with secondary right hip pain he had a mechanical trip and fall on a park bench, the patient has CAD, Hyperlipidemia, DM II, Left shoulder OA, BPH, CKD IV, he was found with Right hip Intertrochanteric Fracture status post intramedullary nail by Doctor Tim Tabares. complaint of pain on his Right hip. CBC/BMP: 12/15/16 0540 12/13/16 0510 Significant Findings Laboratory Tests Test 12/13/16 05:10 12/14/16 06:25 12/15/16 05:40 White Blood Count 13.1 TH/MM3 (4.0-11.0) 11.2 TH/MM3 (4.0-11.0) Red Blood Count 4.45 MIL/MM3 (4.50-5.90) 4.20 MIL/MM3 (4.50-5.90) 4.30 MIL/MM3 (4.50-5.90) Platelet Count 147 TH/MM3 (150-450) 146 TH/MM3 (150-450) Blood Urea Nitrogen 28 MG/DL (7-18) Creatinine 2.05 MG/DL (0.60-1.30) Random Glucose 228 MG/DL (74-106) Calcium Level 8.2 MG/DL (8.5-10.1) Estimat Glomerular Filtration Rate 32 ML/MIN (>89) Imaging Last Impressions Hip X-Ray 12/12/16 Signed Impressions: Service Date/Time: Monday, December 12, 2016 11:00 - CONCLUSION: 1. Status post right hip ORIF, as above. London Chin MD Lower Extremity CT 12/11/16 Signed Impressions: Service Date/Time: Sunday, December 11, 2016 23:50 - CONCLUSION: Mildly comminuted mildly impacted intertrochanteric fracture of the proximal right femur. Mitch Chaney MD Hip and Pelvis X-Ray 12/11/16 Signed Impressions: Service Date/Time: Sunday, December 11, 2016 22:13 - CONCLUSION: Intertrochanteric fracture the right hip Mathieu Walker MD Femur X-Ray 12/11/16 Signed Impressions: Service Date/Time: Sunday, December 11, 2016 22:19 - CONCLUSION: Intertrochanteric fracture right hip Mathieu Walker MD Chest X-Ray 12/11/16 Signed Impressions: Service Date/Time: Sunday, December 11, 2016 22:32 - CONCLUSION: Normal examination. Mathieu Walker MD PE at Discharge GENERAL: Resting comfortably, in no acute distress. SKIN: Focused skin assessment warm/dry. No lacerations, abrasions, or ecchymosis. HEAD: Atraumatic. Normocephalic. EYES: Pupils equal and round. No scleral icterus. No injection or drainage. ENT: Mucous membranes pink and moist. NECK: Trachea midline. No JVD. CARDIOVASCULAR: Regular rate and rhythm. No murmur appreciated. RESPIRATORY: No accessory muscle use. Clear to auscultation. Breath sounds equal bilaterally. GASTROINTESTINAL: Abdomen soft, non-tender, nondistended. MUSCULOSKELETAL: Right hip with clean surgical wound. Nontender. NEUROLOGICAL: Awake and alert. No obvious cranial nerve deficits. Motor grossly within normal limits. Normal speech. PSYCHIATRIC: Appropriate mood and affect; insight and judgment normal. Pt update on day of discharge The patient feels well and is looking forward to being discharged from the hospital. He had no acute complaints. Discussed with case management. Hospital Course Right hip fracture Status post fall resulting in right hip intertrochanteric fracture. Orthopedic surgery was consulted. The pt is status post intramedullary nail by Doctor Tim Tabares. The pt was continued on pain medications with a bowel regimen. We consulted case management and PT. He received Lovenox per ortho. He will follow up with orthopedic surgery as an outpt. DM II We increased Levemir to 20 units BID and scheduled insulin to 8 units with every meal. He will resume his home regimen upon discharge and will follow up with his PCP. Constipation The patient was placed on a bowel regimen including a Dulcolax suppository. Pt Condition on Discharge: Stable Discharge Disposition: Discharge to SNF Discharge Time: > 30 minutes Discharge Instructions DIET: Follow Instructions for: Diabetic Diet Activities you can perform: See Additionl Instruction Follow up Referrals: Orthopedics - 1 Week with Tim Tabares MD PCP Follow-up - 1 Week New Medications: Enoxaparin Inj (Enoxaparin Inj) 40 Mg/0.4 Ml Syr 40 MG SQ DAILY for Blood Clot Prevention, #20 SYRINGE 0 Refills Hydrocodone-Acetaminophen ([place]) 5-325 mg Tab 1-2 TAB PO Q4H PRN for PAIN, #40 TAB 0 Refills Continued Medications: Atorvastatin (Atorvastatin) 20 Mg Tab 20 MG PO HS for Cholesterol Management, #30 TAB 0 Refills Insulin Aspart Inj (Novolog Inj) 100 Unit/Ml Inj 12 UNITS SQ TID Insulin Glargine Inj (Lantus Solostar Pen Inj) 300 Unit/3 Ml Pen 35 UNITS SQ BID for Blood Sugar Management, PEN 0 Refills Lisinopril (Lisinopril) 10 Mg Tab 10 MG PO DAILY, #30 TAB 0 Refills Pantoprazole (Pantoprazole) 40 Mg Tab 40 MG PO DAILY for Reflux, #30 TAB 0 Refills Tamsulosin (Tamsulosin) 0.4 Mg Cap 0.4 MG PO HS for Manage Prostate Problems, #30 CAP 0 Refills Alfie Estevez DO Dec 15, 2016 11:51
[2016-12-15] MEDS: ACETAMINOPHEN/HYDROcodone 325 MG/5 MG TAB PO PRN (13:18)
[2016-12-15] MEDS: ENOXAPARIN SODIUM 30 MG/0.3 ML SYRINGE SQ SCH (13:18)
== END 2016-12-15 16:06 | DRG 481 ==
LOC: NEPD 21:04 → NEDA 23:15 → N06B 12-12 00:52
PROVIDERS: ADMIT Hospitalist; ATTEND Hospitalist
PROC: 0QS606Z Reposition Right Upper Femur with Intramedullary Internal Fixation Device, Open Approach (ICD-10-PCS; principal; 2016-12-12 10:24)
DX: S72.141A Displaced intertrochanteric fracture of right femur, initial encounter for closed fracture (principal); N18.4 Chronic kidney disease, stage 4 (severe); E11.22 Type 2 diabetes mellitus with diabetic chronic kidney disease; I25.10 Atherosclerotic heart disease of native coronary artery without angina pectoris; E78.5 Hyperlipidemia, unspecified; M19.012 Primary osteoarthritis, left shoulder; N40.0 Benign prostatic hyperplasia without lower urinary tract symptoms; I12.9 Hypertensive chronic kidney disease with stage 1 through stage 4 chronic kidney disease, or unspecified chronic kidney disease; K59.00 Constipation, unspecified; W01.0XXA Fall on same level from slipping, tripping and stumbling without subsequent striking against object, initial encounter; Z96.651 Presence of right artificial knee joint; E66.9 Obesity, unspecified; Z79.4 Long term (current) use of insulin
CPT/HCPCS: 71010; 73502; 73552; 73700; 76000; 80048; 80053; 82948; 85025; 85027; 85610; 85730; 93005; 94150; 96374; 96375; J0131; J0690; J1580; J1650; J1815; J2175; J2270; J2405; J3370; J7030; J7120

== ENCOUNTER 2017-06-20 11:04 | Emergency (ER) | payer MEDICARE, OTHER ==
[~2017-06-20] VITALS: Ht 167.6 cm; Wt 111.0 kg
[~2017-06-20 11:04] MED LIST changes: -AMLO5TAB2 PO; -ASPI-516 CHEW; +ATOR20TA15 PO; +ENOX40IN SQ; +NORC5TAB PO
[2017-06-20 11:06] VITALS: BP 147/73; PULSE 93; RESP 18; TEMP 98; O2SAT 100
[2017-06-20] MEDS ORDERED: LANTINJ SQ (11:14)
[2017-06-20] MEDS ORDERED: NOVOLOGP2 SQ (11:32)
--- NOTE | 2017-06-20 11:39 | PD ---
HPI Chief Complaint: Medication Refill Request Time Seen by Provider: 11:12 Travel History International Travel<30 days: No Contact w/Intl Traveler<30days: No Traveled to known affect area: No History of Present Illness HPI This patient presents stating that he needs a refill on his Lantus. He had enough medication to get him through until this morning. He denies any diabetic symptoms such as polyuria, polydipsia. PFSH Past Medical History Hx Anticoagulant Therapy: No Asthma: No Blood Disorders: No Heart Rhythm Problems: Yes Cancer: No Cardiovascular Problems: Yes High Cholesterol: Yes Chemotherapy: No Chest Pain: Yes Congestive Heart Failure: No COPD: No Cerebrovascular Accident: No Diabetes: Yes Endocrine: No Genitourinary: Yes Hepatitis: No Hiatal Hernia: No Hypertension: Yes Immune Disorder: No Implanted Vascular Access Dvce: Yes Kidney Stones: Yes Musculoskeletal: No Neurologic: Yes Psychiatric: No Reproductive: No Respiratory: Yes Immunizations Current: No Radiation Therapy: No Renal Failure: Yes Sleep Apnea: No Thyroid Disease: No Ulcer: Yes Past Surgical History Abdominal Surgery: Yes (APPY 2003) AICD: No Appendectomy: Yes (2003) Body Medical Devices: hernia mesh Cardiac Surgery: No Ear Surgery: No Endocrine Surgery: No Eye Surgery: No Genitourinary Surgery: No Joint Replacement: No Oral Surgery: Yes (TONSILLECTOMY ) Pacemaker: No Thoracic Surgery: No Tonsillectomy: Yes Other Surgery: Yes (tonsils,hernia,right leg...) Social History Alcohol Use: No (hx of abuse) Tobacco Use: No Substance Use: No Allergies-Medications (Allergen,Severity, Reaction): Coded Allergies: No Known Allergies (Verified Allergy, Unknown, 12/12/16) Reported Meds & Prescriptions Reported Meds & Active Scripts Active Lantus Solostar Pen Inj (Insulin Glargine) 300 Unit/3 Ml Pen 35 Units SQ BID Enoxaparin Inj (Enoxaparin Sodium) 40 Mg/0.4 Ml Syr 40 Mg SQ DAILY Phelan (Hydrocodone-Acetaminophen) 5-325 mg Tab 1-2 Tab PO Q4H PRN Reported Atorvastatin (Atorvastatin Calcium) 20 Mg Tab 20 Mg PO HS Lantus Solostar Pen Inj (Insulin Glargine) 300 Unit/3 Ml Pen 35 Units SQ BID Pantoprazole (Pantoprazole Sodium) 40 Mg Tab 40 Mg PO DAILY Lisinopril 10 Mg Tab 10 Mg PO DAILY Tamsulosin (Tamsulosin HCl) 0.4 Mg Cap 0.4 Mg PO HS Novolog Inj (Insulin Aspart) 100 Unit/Ml Inj 12 Units SQ TID Review of Systems Except as stated in HPI: all other systems reviewed are Neg Physical Exam Narrative GENERAL: Awake and alert and in no acute distress. SKIN: Warm and dry. HEAD: Normocephalic/atraumatic. EYES: Pupils are equal. Extraocular movements are intact. NECK: Normal range of motion. CARDIOVASCULAR: Regular rate and rhythm. RESPIRATORY: Nonlabored respirations. MUSCULOSKELETAL: Atraumatic. NEUROLOGICAL: Nonfocal. PSYCHIATRIC: Appropriate mood and affect. Data Data Last Documented VS Vital Signs Date Time Temp Pulse Resp B/P (MAP) Pulse Ox O2 Delivery O2 Flow Rate FiO2 06/20/17 11:06 98.0 93 18 147/73 (97) 100 Orders Orders Ed Discharge Order (06/20/17 11:15) MDM Medical Decision Making Medical Screen Exam Complete: Yes Emergency Medical Condition: Yes Differential Diagnosis Differential diagnosis includes but is not limited to lack of primary care, poor planning, taking the medication too frequently, drug-seeking behavior Narrative Course This patient presents requesting a refill for his Lantus. The requested prescription has been written. Diagnosis Primary Impression: Medication refill Patient Instructions: General Instructions Departure Forms: Tests/Procedures Scripts Insulin Glargine Inj (Lantus Solostar Pen Inj) 300 Unit/3 Ml Pen 35 UNITS SQ BID for Blood Sugar Management, #10 PEN 0 Refills Prov: Sara Moura MD 06/20/17 Disposition: 01 DISCHARGE HOME Condition: Stable Sara Moura MD June 20, 2017 11:39
== END 2017-06-20 11:39 | disposition home or self-care (01) ==
LOC: NEPD 11:04
DX: Z76.0 Encounter for issue of repeat prescription (principal); I10 Essential (primary) hypertension; E78.00 Pure hypercholesterolemia, unspecified; E11.9 Type 2 diabetes mellitus without complications; Z87.442 Personal history of urinary calculi; Z79.4 Long term (current) use of insulin; Z79.899 Other long term (current) drug therapy
CPT/HCPCS: 99281